=== PATIENT | male | born 1960 | race Two or more races ===

== ENCOUNTER → 2023-12-20 | Outpatient (CLI) | payer OTHER ==
[2023-12-20 08:51] LABS: Potassium 4.4 mmol/L (3.5-5.1); Sodium 142 mmol/L (136-145)
[2023-12-20 08:52] LABS: Calcium 10.1 mg/dL (8.5-10.1); Carbon Dioxide 29 mmol/L (20-30)
[2023-12-20 08:57] LABS: BUN/Creatinine Ratio 9.4 (10.0-20.0); Blood Urea Nitrogen 9 mg/dL (9-23); Chloride 107 mmol/L (98-107); Glucose 140 mg/dL (74-106)
[2023-12-20 09:01] LABS: Anion Gap 6 (5-15)
== END | disposition home or self-care (01) ==
LOC: LAB 07:56
PROVIDERS: ATTEND Internal Medicine
DX: R97.20 Elevated prostate specific antigen [PSA] (principal); N40.1 Benign prostatic hyperplasia with lower urinary tract symptoms
CPT/HCPCS: 36415; 80048

== ENCOUNTER → 2024-03-21 | Outpatient (CLI) | payer OTHER ==
[2024-03-21 09:24] LABS: Urine Bacteria None Seen /hpf (None Seen)
[2024-03-21 09:40] LABS: Urine Blood 1+ /uL (Negative); Urine Clarity Clear (Clear); Urine Color Yellow (Yellow); Urine Mucus FEW (None Seen); Urine Protein, UAD TRACE (Negative); Urine Specific Gravity 1.026 (1.001-1.035); Urine Urobilinogen Normal (Negative); Urine WBC 1 /hpf (0 - 3)
[2024-03-21 09:53] LABS: Chloride 108 mmol/L (98-107); Potassium 4.1 mmol/L (3.5-5.1); Sodium 141 mmol/L (136-145)
[2024-03-21 09:54] LABS: Anion Gap 3 (5-15); Calcium 9.8 mg/dL (8.7-10.4); Carbon Dioxide 30 mmol/L (20-30)
[2024-03-21 09:58] LABS: Creatinine, Urine 198.63 mg/dL (30.0-125.0)
[2024-03-21 09:59] LABS: BUN/Creatinine Ratio 10.1 (10.0-20.0); Blood Urea Nitrogen 10 mg/dL (9-23); Glucose 132 mg/dL (74-106); Triglycerides 192 mg/dL (< 150)
[2024-03-21 10:00] LABS: LDL Cholesterol 100 mg/dL (< 100)
[2024-03-21 10:01] LABS: Cholesterol 164 mg/dL (< 200); HDL Cholesterol 31 mg/dL (40-59)
== END | disposition home or self-care (01) ==
LOC: LAB 09:11
PROVIDERS: ATTEND Internal Medicine
DX: I10 Essential (primary) hypertension (principal); E11.69 Type 2 diabetes mellitus with other specified complication; E78.2 Mixed hyperlipidemia; R94.4 Abnormal results of kidney function studies; R82.90 Unspecified abnormal findings in urine
CPT/HCPCS: 36415; 80048; 80061; 81001; 82043; 82570; 83036

== ENCOUNTER 2024-07-06 15:51 | Inpatient (IN) | payer OTHER ==
[~2024-07-06] VITALS: Ht 175.3 cm; Wt 89.8 kg
--- NOTE | 2024-07-06 16:05 | ED.PDOC ---
General HPI Comments A 63 year old male presents to the ED with a chief complaint of LT flank pain onset today around 14:00. Patient states he began experiencing similar pain about 2 months ago, PCP sent him for imaging and was told he had a kidney stone. Patient has a past medical history of DM and kidney stones. Denies fever, chills, nausea, vomiting, chest pain, shortness of breath, dysuria, hematuria. No other symptoms or modifying factors present at this time. Time Seen by MD: 15:58 Reviewed notes: Medications, Allergies Allergies: Coded Allergies: NO KNOWN ALLERGIES (Unverified , 07/06/24) Information Source: Patient Mode of Arrival: Ambulatory Severity: Moderate Timing: Hours Duration: Since onset Has not urinated for: Hours Prehospital treatment: None History of: Kidney stone Location: (L)Flank associated signs and symptoms: Flank Pain Past Medical History PAST MEDICAL HISTORY: DM, Kidney Stones Surgical History: Hernia Repair Family History Family History: Unknown Social History Smoker: Non-Smoker Alcohol: Denies ETOH Use Drugs: Denies Drug Use Lives In: Home Constitutional: denies: chills, diaphoresis, fatigue, fever, malaise, sweats, weakness, others EENTM: denies: blurred vision, double vision, ear bleeding, ear discharge, ear drainage, ear pain, ear ringing, eye pain, eye redness, hearing loss, mouth pain, mouth swelling, nasal discharge, nose bleeding, nose congestion, nose pain, photophobia, tearing, throat pain, throat swelling, voice changes, others Respiratory: denies: cough, hemoptysis, orthopnea, SOB at rest, shortness of breath, SOB with excertion, stridor, wheezing, others Cardiovascular: denies: chest pain, dizzy spells, diaphoresis, Dyspnea on exertion, edema, irregular heart beat, left arm pain, lightheadedness, palpitations, PND, syncope, others Gastrointestinal: denies: abdomen distended, abdominal pain, blood streaked bowels, constipated, diarrhea, dysphagia, difficulty swallowing, hematemesis, melena, nausea, poor appetite, poor fluid intake, rectal bleeding, rectal pain, vomiting, others Genitourinary: reports: flank pain (LT flank pain); denies: burning, dysuria, frequency, hematuria, incontinence, penile discharge, penile sore, pain, testicle pain, testicle swelling, urgency, others Neurological: denies: dizziness, fainting, headache, left sided numbness, left sided weakness, numbness, paresthesia, pre-existing deficit, right sided numbness, right sided weakness, seizure, speech problems, tingling, tremors, weakness, others Musculoskeletal: denies: back pain, gout, joint pain, joint swelling, muscle pain, muscle stiffness, neck pain, others Integumetry: denies: bruises, change in color, change in hair/nails, dryness, laceration, lesions, lumps, rash, wounds, others Allergic/Immunocompromised: denies: Difficulty Healing, Frequent Infections, Hives, Itching, others Hematologic/Lymphatic: denies: anemia, blood clots, easy bleeding, easy bruising, swollen glands, others Endocrine: denies: excessive hunger, excessive sweating, excessive thirst, excessive urination, flushing, intolerance to cold, intolerance to heat, unexplained weight gain, unexplained weight loss, others Psychiatric: denies: anxiety, bipolar disorder, depression, hopeless, panic disorder, schizophrenia, sleepless, suicidal, others All Other Systems: Reviewed and Negative Physical Exam General Appearance: Normal, Other (appears uncomfortable) HEENT: Normal ENT Inspection, Pharynx Normal, TMs Normal Neck: Full Range of Motion, Non-Tender, Normal, Normal Inspection Respiratory: Chest Non-Tender, Lungs Clear, No Accessory Muscle Use, No Respiratory Distress, Normal Breath Sounds Cardiovascular: No Edema, No JVD, No Murmur, No Gallop, Normal Peripheral Pulses, Regular Rate/Rhythm Breast Exam: Deferred Gastrointestinal: No Organomegaly, Non Tender, No Pulsatile Mass, Normal Bowel Sounds, Soft Genitalia: Deferred Pelvic: Deferred Rectal: Deferred Extremities: No calf tenderness, Normal capillary refill, Normal inspection, Normal range of motion, Non-tender, No pedal edema Musculoskeletal : Apperance: Normal Neurologic: Alert, fitness center attendant II-XII nml as Tested, No Motor Deficits, Normal Affect, Normal Mood, No Sensory Deficits Cerebellar Function: Normal Reflexes: Normal Skin: Dry, Normal Color, Warm Lymphatic: No Adenopathy Was a procedure done? Was a procedure done?: No Differential Diagnosis Kidney stone (Female): N/A Kidney stone (Male): Cholelithiasis, Pancreatitis, Pyelonephritis, Renal failure, Urolithiasis, Urinary tract infection Penile/Scrotal: N/A Urinary Problem (Male): N/A Urinary Problem (Female): N/A X-Ray, Labs, Meds, VS Vital Signs Date Time Temp Pulse Resp B/P (MAP) Pulse Ox O2 Delivery O2 Flow Rate FiO2 07/06/24 16:03 97.9 116 16 165/90 (115) 97 Lab Test 07/06/24 16:44 07/06/24 16:27 07/06/24 16:00 Range/Units Urine Color Light-yellow Yellow Urine Clarity Clear Clear Urine pH 6.5 5.0-9.0 Urine Specific Somis 1.019 1.001-1.035 Urine Protein Negative Negative Urine Ketones Negative Negative Urine Blood 1+ H Negative /uL Urine Nitrite Negative Negative Urine Bilirubin Negative Negative Urine Urobilinogen Normal Negative mg/dL Urine Leukocyte Esterase Negative Negative /uL Urine RBC 29 0 - 3 /hpf Urine WBC <1 0 - 3 /hpf Urine Squamous Epithelial Cells Few <5 /hpf Urine Bacteria None seen None Seen /hpf Urine Glucose Normal Normal mg/dL White Blood Count 7.7 4.4-10.8 10^3/uL Red Blood Count 5.02 4.5-5.90 10^6/uL Hemoglobin 15.9 13.5-17.5 g/dL Hematocrit 45.5 41.0-53.0 % Mean Corpuscular Volume 90.8 80.0-100.0 fL Mean Corpuscular Hemoglobin 31.8 28.0-32.0 pg Mean Corpuscular Hemoglobin Concent 35.0 32.0-36.0 g/dL Red Cell Distribution Width 13.3 11.8-14.3 % Platelet Count 157 140-450 10^3/uL Mean Platelet Volume 10.1 6.9-10.8 fL Neutrophils (%) (Auto) 66.6 37.0-80.0 % Lymphocytes (%) (Auto) 26.3 10.0-50.0 % Monocytes (%) (Auto) 5.7 0.0-12.0 % Eosinophils (%) (Auto) 0.9 0.0-7.0 % Basophils (%) (Auto) 0.5 0.0-2.0 % Neutrophils # (Auto) 5.2 1.6-8.6 10 ^3/uL Lymphocytes # (Auto) 2.0 0.4-5.4 10 ^3/uL Monocytes # (Auto) 0.4 0-1.3 10 ^3/uL Eosinophils # (Auto) 0.1 0-0.8 10 ^3/uL Basophils # (Auto) 0 0-0.2 10 ^3/uL Nucleated Red Blood Cells 0.3 % Sodium Level Pending Potassium Level Pending Chloride Level Pending Carbon Dioxide Level Pending Anion Gap Pending Blood Urea Nitrogen Pending Creatinine Pending Glomerular Filtration Rate Calc Pending BUN/Creatinine Ratio Pending Serum Glucose Pending Calcium Level Pending Current Medications Medications (Trade) Dose Ordered Sig/Jace Route Start Time Stop Time Status Last Admin Sodium Chloride 1,000 ml @ 1,000 mls/hr Q1H ONCE IV 07/06/24 16:00 07/06/24 16:59 DC 07/06/24 17:28 Tamsulosin HCl (Flomax) 0.4 mg ONCE ONCE PO 07/06/24 16:00 07/06/24 16:01 DC 07/06/24 17:30 [place] [address] Ph: [phone] DIAGNOSTIC IMAGING Diagnostic Imaging Report : [id number] Signed PATIENT: REDDY OROZCO ACCT: [id number] UNIT: [id number] : 1960 LOC: ER ROOM / BED: / AGE / SEX: 63 / M ADM STATUS: REG ER SERVICE 1600 ORDERING PHYSICIAN: JB OTT MD PROCEDURE(s): ABPL - CT AB PEL WO CON-NO ORAL OR IV REASON: left flank pain ORDER NUMBER(s): [id number], ACCESSION NUMBER(s): [id number] Exam: CT CT AB PEL WO CON-NO ORAL OR IV History: left flank pain Comparison Study: 12/22/2023 report only TECHNIQUE: Multidetector CT of the abdomen and pelvis without contrast. Axial, coronal and sagittal multiplanar reformats were obtained from the axial data set by the technologist. Radiation Dose Information: CT Dose: CTDI volume is 19.94 mGy. Dose-length product is 1064.16 mGy*cm FINDINGS: Bibasilar atelectasis. Partially visualized heart is unremarkable. Liver, spleen, gallbladder, pancreas and right adrenal glands unremarkable. 2.2 cm left adrenal nodule which may represent an adenoma. Right kidney, and ureter unremarkable. Punctate nonobstructing left renal calculus. 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 There is [id number] left-sided hydroureteronephrosis. There is mild left-sided per inephric fat stranding which is most likely from the hydronephrosis . 5 mm obstructing calculus within the left distal ureter. 3 mm calculus of the left posterior urinary bladder. Mild wall thickening of the urinary bladder. Enlarged prostate. Stomach is unremarkable. Small bowel loops unremarkable. Appendix is unremarkable. Large bowel is unremarkable. No evidence of intraperitoneal free air or free fluid. Mild mesenteric fat stranding of the mid to lower abdomen. No evidence of aortic aneurysm. Mild atherosclerotic calcification of the aorta and bilateral iliacs. No significant lymphadenopathy. Small fat containing right inguinal hernia. Small fat containing umbilical hernia. No destructive osseous lesions are noted. IMPRESSION: 5 mm obstructing calculus over the left distal ureter causing [id number] left-sided hydroureteronephrosis. 3 mm calculus of the posterior left urinary bladder . Wall thickening of the urinary bladder which may be due to inadequate distention/ cystitis. Recommend correlation with urinalysis. Enlarged prostate. Recommend correlation with PSA. Mild mesenteric fat stranding of the mid to lower abdomen which may represent mesenteric panniculitis in the right clinical setting. Correlate clinically. 2.2 cm left adrenal nodule which may represent an adenoma. ATED BY: APRIL PASCUAL DO DICTATED DATE/TIME: 07/06/241702 SIGNED BY: APRIL PASCUAL DO SIGNED DATE/TIME: 07/06/241702 CC: Time of 1ST Reevaluation: 16:28 Reevaluation 1ST: Unchanged Patient Education/Counseling: Diagnosis, Treatment, Prognosis Family Education/Counseling: No Family Present Additional Information HI DATA VOL/COMPLEXITY:>2 External Notes- Ordered Test- CT, Lab, PHA Reviewed Results: CBC, BMP, UA Interpreted Results- CT Discuss Tx/Results- medical personnel, patient Departure 1 Departure Time of Disposition: 17:34 (Patient presented with abdominal pain that was concerning for possible appendicits, gastritis, cholecystitis, colitis, gastroenteritis, sbo, or orther possible surgical emergency. Data: 1. I ordered and reviewed the result of at least 3 labs including a CBC, BMP, and Urinalysis. 2. I independently interpreted the following tests: CT Abdoment and Pelvis is concerning for obstructing left renal colic with hydronephrosis .Risk:This patient has a high risk of morbidity due to further diagnostic testing or treatment and may suffer from an acute abdominal process disorder. Workup reveals obstructing left renal colic with hydronephrosis and patient should be admitted for further workup. and possible expert consultation. ) Impression: Primary Impression: Renal colic on left side Additional Impressions: Hydronephrosis Qualified Codes: N13.2 - Hydronephrosis with renal and ureteral calculous obstruction Intractable abdominal pain Disposition: ADMITTED INPATIENT Admit to: Med Surg Condition: Serious Critical Care Note Critical Care Time?: Yes Critical care comment: Intractable abdominal pain Authorized and Performed by: Jb Ott MD Total critical care time: Approximately 38 minutes Due to a high probability of clinically significant, life threatening deterioration, the patient required my highest level of preparedness to intervene emergently and I personally spent this critical care time directly and personally managing the patient. This critical care time included obtaining a history; examining the patient; pulse oximetry; ordering and review of studies; arranging urgent treatment with development of a management plan; evaluation of patient's response to treatment; frequent reassessment; and, discussions with other providers. This critical care time was performed to assess and manage the high probability of imminent, life-threatening deterioration that could result in multi-organ failure. It was exclusive of separately billable procedures and treating other patients and teaching time. Please see my other sections and the rest of the note for further information on patient assessment and treatment. Stability Stability form required: No I personally scribed for JB OTT MD ([email or web address]) on 07/06/24 at 16:05. Electronically submitted by Vanessa Pineda ([email or web address]). I personally scribed for JB OTT MD ([email or web address]) on 07/06/24 at 17:10. Electronically submitted by Vanessa Pineda ([email or web address]). I personally scribed for JB OTT MD ([email or web address]) on 11/29/24 at 17:19. Electronically submitted by Vanessa Pineda ([email or web address]). JB OTT MD Jul 06, 2024 16:05
[2024-07-06 16:46] LABS: Urine Bacteria None Seen /hpf (None Seen)
[2024-07-06 16:49] LABS: Basophils # (auto) 0 10 ^3/uL (0-0.2); Basophils % (auto) 0.5 % (0.0-2.0); Eosinophils # (auto) 0.1 10 ^3/uL (0-0.8); Eosinophils % (auto) 0.9 % (0.0-7.0); Hematocrit 45.5 % (41.0-53.0); Hemoglobin 15.9 g/dL (13.5-17.5); Lymphocytes % (auto) 26.3 % (10.0-50.0); Mean Corpuscular Hemoglobin 31.8 pg (28.0-32.0); Mean Corpuscular Volume 90.8 fL (80.0-100.0); Monocytes # (auto) 0.4 10 ^3/uL (0-1.3); Monocytes % (auto) 5.7 % (0.0-12.0); Neutrophils # (auto) 5.2 10 ^3/uL (1.6-8.6); Neutrophils % (auto) 66.6 % (37.0-80.0); Nucleated Red Blood Cells % 0.3 %; Platelet Count (auto) 157 10^3/uL (140-450); Red Blood Cells 5.02 10^6/uL (4.5-5.90); Red Cell Distribution Width 13.3 % (11.8-14.3); White Blood Cell 7.7 10^3/uL (4.4-10.8)
[2024-07-06 16:52] LABS: Urine Blood 1+ /uL (Negative); Urine Clarity Clear (Clear); Urine Color Light-Yellow (Yellow); Urine Protein, UAD Negative (Negative); Urine Specific Gravity 1.019 (1.001-1.035); Urine Urobilinogen Normal (Negative); Urine WBC <1 /hpf (0 - 3); Urine pH 6.5 (5.0-9.0)
--- NOTE | 2024-07-06 17:05 | DVH ---
Exam: CT CT AB PEL WO CON-NO ORAL OR IV History: left flank pain Comparison Study: 12/22/2023 report only TECHNIQUE: Multidetector CT of the abdomen and pelvis without contrast. Axial, coronal and sagittal m ultiplanar reformats were obtained from the axial data set by the technologist. Radiation Dose Information: CT Dose: CTDI volume is 19.94 mGy. Dose-length product is 1064.16 mGy*cm FINDINGS: Bibasilar atelectasis. Partially visualized heart is unremarkable. Liver, spleen, gallbladder, pancreas and right adrenal glands unremarkable. 2.2 cm left adrenal nodul e which may represent an adenoma. Right kidney, and ureter unremarkable. Punctate nonobstructing left renal calculus. Dual left renal c ollecting system with a bifid ureter. There is [id number] left-sided hydroureteronephrosis. The re is mild left-sided perinephric fat stranding which is most likely from the hydronephrosis . 5 mm o bstructing calculus within the left distal ureter. 3 mm calculus of the left posterior urinary bladde r. Mild wall thickening of the urinary bladder. Enlarged prostate. Stomach is unremarkable. Small bowel loops unremarkable. Appendix is unremarkable. Large bowel is unr emarkable. No evidence of intraperitoneal free air or free fluid. Mild mesenteric fat stranding of the mid to lower abdomen. No evidence of aortic aneurysm. Mild atherosclerotic calcification of the aorta and bilateral iliacs . No significant lymphadenopathy. Small fat containing right inguinal hernia. Small fat containing umbilical hernia. No destructive oss eous lesions are noted. IMPRESSION: 5 mm obstructing calculus over the left distal ureter causing [id number] left-sided hydroureter onephrosis. 3 mm calculus of the posterior left urinary bladder . Wall thickening of the urinary bladder which ma y be due to inadequate distention/ cystitis. Recommend correlation with urinalysis. Enlarged prostate. Recommend correlation with PSA. Mild mesenteric fat stranding of the mid to lower abdomen which may represent mesenteric panniculitis in the right clinical setting. Correlate clinically. 2.2 cm left adrenal nodule which may represent an adenoma.
[2024-07-06 17:27] LABS: Chloride 103 mmol/L (98-107); Potassium 4.2 mmol/L (3.5-5.1); Sodium 139 mmol/L (136-145)
[2024-07-06 17:28] LABS: Anion Gap 11 (5-15); Carbon Dioxide 25 mmol/L (20-31)
[2024-07-06] MEDS: SODIUM CHLORIDE 0.9% 1,000 ML IV ONE (17:28)
[2024-07-06 17:29] LABS: Calcium 10.3 mg/dL (8.7-10.4)
[2024-07-06] MEDS: TAMSULOSIN HYDROCHLORIDE 0.4 MG CAP PO ONE (17:30)
[2024-07-06 17:34] LABS: BUN/Creatinine Ratio 11.6 (10.0-20.0); Blood Urea Nitrogen 13 mg/dL (9-23)
[2024-07-06 17:45] VITALS: PULSE 72; RESP 16; O2SAT 97
[2024-07-06] MEDS: ONDANSETRON HCL 4 MG/2 ML VIAL IV ONE ×2 (17:45→17:55)
[2024-07-06] MEDS: KETOROLAC TROMETH 30 MG/ML 1ML VIAL IV ONE (17:55)
[2024-07-06] MEDS: MORPHINE SULFATE 4 MG/ML SYR/VIAL IV ONE (18:06)
[2024-07-06 18:08] LABS: Glucose 182 mg/dL (74-106)
[2024-07-06 19:40] VITALS: PULSE 73; RESP 18; O2SAT 97
[2024-07-06] MEDS ORDERED: DOCUSATE SOD 100 MG CAP PO PRN ×2 (20:30)
[2024-07-06] MEDS ORDERED: MORPHINE SULFATE INJ 2 MG/ml SYRG IV PRN (20:30)
[2024-07-06] MEDS ORDERED: NITROGLYCERIN 0.4 MG SL TAB SL PRN (20:30)
[2024-07-06] MEDS ORDERED: ONDANSETRON HCL 4 MG/2 ML VIAL IV PRN (20:30)
[2024-07-06] MEDS: MANNITOL FTV 25% 12.5 GM/50 ML 50 ML IV ONE (21:31)
[2024-07-06] MEDS: SODIUM CHLORIDE 0.9% 1,000 ML IV SCH (21:32)
[2024-07-06] MEDS: SODIUM CHLOR 0.9% PF (SALINE LOCK) 10ML VIAL/SYR IV SCH (22:06)
--- NOTE | 2024-07-06 23:08 | DVHHPRES ---
History of Present Illness Resident Creating Document: NEIL KELLY RESIDENT History of Present Illness Patient is 63 years old male with past medical history of diabetes mellitus type 2, kidney stone, BPH came with a complaint of left flank pain. As per patient he started having left flank pain developed slowly, maximum was 10/10, radiating to the left groin, sharp in nature, no aggravating factor, relieved with some pain medication. Patient also reported nausea and vomiting once time, watery food content, no blood. On further discussion patient also stated he had some dysuria today. Patient stated that he has been having narrowing is team of uterine for a while and he was on Flomax before for benign enlargement of the prostate. Patient denied any constipation or diarrhea, chest pain, shortness of breath, acute joint pain or swelling, dysarthria or change in vision. Initial lab workup revealed blood sugar 182, other initials blood workup was within normal limit. CT of the abdomen revealed-5 mm obstructing calculus over the left distal ureter causing [id number]-[id number] left-sided hydroureteronephrosis. 3 mm calculus of the posterior left urinary bladder . Wall thickening of the urinary bladder which may be due to inadequate distention/ cystitis. Recommend correlation with urinalysis.Enlarged prostate. Mild mesenteric fat stranding of the mid to lower abdomen which may represent mesenteric panniculitis in the right clinical setting. Correlate clinically. 2.2 cm left adrenal nodule which may represent an adenoma. Past Medical History Mellitus type 2, BP, kidney stone Past Surgical History Bilateral inguinal hernia repair, 1994 and 9096 Family History Mom and dad had diabetes mellitus Past Social History Lives at home with , denies smoking, alcoholism, drug abuse Review of Systems Review of Systems Allergy- NKDA Patient was seen today at the bedside. Cardiovascular- deny acute chest pain or shortness of breath or cough or palpitation Respiratory- denies cough or short of breath or wheezing Gastrointestinal- denies any rectal bleeding Musculoskeletal-denies acute joint swelling or tenderness or redness Neurological- denies acute dysarthria, dysphagia, change in vision Psychiatry- denies depression or SI or HI Skin- denies acute rash or purpura Allergies: Coded Allergies: NO KNOWN ALLERGIES (Unverified , 07/06/24) Medications Current Medications Medications Dose Ordered Sig/Jace Route Start Time Stop Time Status Last Admin Dose Admin Acetaminophen 650 mg Q6HP PRN PO 07/06/24 20:30 Morphine Sulfate 2 mg Q4HPRN PRN IV 07/06/24 20:30 Sodium Chloride 10 ml Q8HR IV 07/06/24 22:00 07/06/24 22:06 10 ML Ondansetron HCl 4 mg Q4HP PRN IV 07/06/24 20:30 Docusate Sodium 100 mg BIDPRN PRN PO 07/06/24 20:30 Enoxaparin Sodium 40 mg DAILY SC 07/07/24 10:00 Nitroglycerin 0.4 mg Q5MINP PRN SL 07/06/24 20:30 Morphine Sulfate 2 mg Q30M PRN IV 07/06/24 20:30 Sodium Chloride 1,000 ml @ 125 mls/hr Q8H IV 07/06/24 20:45 07/06/24 21:32 125 MLS/HR Exam Vital Signs Vital Signs Date Time Temp Pulse Resp B/P (MAP) Pulse Ox O2 Delivery O2 Flow Rate FiO2 07/06/24 21:00 75 15 144/85 (104) 96 07/06/24 19:40 Room Air* 0 21 07/06/24 19:40 98.3 98.3 Exam General examination- , alert, oriented, conversant HEENT- PEERLA, no acute nasal discharge Cardiovascular- S1-S2 audible, rate and rhythm regular, no murmur Respiratory- CTAB, no wheeze or rhonchi Gastrointestinal-nontender, bowel sound+. Nondistended Musculoskeletal-no acute joint swelling or tenderness or redness Renal system-left flank tenderness++ Lower extremity- no leg edema Neurological- cranial nerves intact, no acute dysarthria or dysphagia Psychiatry- denies depression or SI or HI Skin- no acute rash or purpura Labs/Xrays Labs Test 07/06/24 16:44 07/06/24 16:27 Range/Units Urine Color Light-yellow Yellow Urine Clarity Clear Clear Urine pH 6.5 5.0-9.0 Urine Specific [place] 1.019 1.001-1.035 Urine Protein Negative Negative Urine Ketones Negative Negative Urine Blood 1+ H Negative /uL Urine Nitrite Negative Negative Urine Bilirubin Negative Negative Urine Urobilinogen Normal Negative mg/dL Urine Leukocyte Esterase Negative Negative /uL Urine RBC 29 0 - 3 /hpf Urine WBC <1 0 - 3 /hpf Urine Squamous Epithelial Cells Few <5 /hpf Urine Bacteria None seen None Seen /hpf Urine Glucose Normal Normal mg/dL White Blood Count 7.7 4.4-10.8 10^3/uL Red Blood Count 5.02 4.5-5.90 10^6/uL Hemoglobin 15.9 13.5-17.5 g/dL Hematocrit 45.5 41.0-53.0 % Mean Corpuscular Volume 90.8 80.0-100.0 fL Mean Corpuscular Hemoglobin 31.8 28.0-32.0 pg Mean Corpuscular Hemoglobin Concent 35.0 32.0-36.0 g/dL Red Cell Distribution Width 13.3 11.8-14.3 % Platelet Count 157 140-450 10^3/uL Mean Platelet Volume 10.1 6.9-10.8 fL Neutrophils (%) (Auto) 66.6 37.0-80.0 % Lymphocytes (%) (Auto) 26.3 10.0-50.0 % Monocytes (%) (Auto) 5.7 0.0-12.0 % Eosinophils (%) (Auto) 0.9 0.0-7.0 % Basophils (%) (Auto) 0.5 0.0-2.0 % Neutrophils # (Auto) 5.2 1.6-8.6 10 ^3/uL Lymphocytes # (Auto) 2.0 0.4-5.4 10 ^3/uL Monocytes # (Auto) 0.4 0-1.3 10 ^3/uL Eosinophils # (Auto) 0.1 0-0.8 10 ^3/uL Basophils # (Auto) 0 0-0.2 10 ^3/uL Nucleated Red Blood Cells 0.3 % Sodium Level 139 136-145 mmol/L Potassium Level 4.2 3.5-5.1 mmol/L Chloride Level 103 98-107 mmol/L Carbon Dioxide Level 25 20-31 mmol/L Anion Gap 11 5-15 Blood Urea Nitrogen 13 9-23 mg/dL Creatinine 1.12 0.700-1.30 mg/dL Glomerular Filtration Rate Calc 73 >90 mL/min BUN/Creatinine Ratio 11.6 10.0-20.0 Serum Glucose 182 H 74-106 mg/dL Calcium Level 10.3 8.7-10.4 mg/dL Magnesium Level 1.7 1.6-2.6 mg/dL Assessment/Plan Assessment/Plan # left flank pain likely due to obstructive urinary stone -CT of the abdomen revealed-5 mm obstructing calculus over the left distal ureter causing tnnn-tr-ethcutrl left-sided hydroureteronephrosis. 3 mm calculus of the posterior left urinary bladder . Wall thickening of the urinary bladder which may be due to inadequate distention/ cystitis. .Enlarged prostate. -continue IV normal saline as prescribed -continue Flomax 0.4 mg p.o. q.d. -IV mannitol once as prescribed -continue pain medication as prescribed -ordered Urology consult # possible pyelonephritis, possible cystitis -# left flank pain -CT of the abdomen revealed-5 mm obstructing calculus over the left distal ureter causing dnwr-ij-xkyidcie left-sided hydroureteronephrosis. 3 mm calculus of the posterior left urinary bladder . Wall thickening of the urinary bladder which may be due to inadequate distention/ cystitis. .Enlarged prostate. -continue IV normal saline as prescribed -continue Flomax 0.4 mg p.o. q.d. -IV mannitol once as prescribed -continue ceftriaxone 2 g IV daily -pending blood culture -continue pain medication as prescribed -ordered Urology consult # left-sided tyze-zb-ytmewfpu hydronephrosis likely due to obstructive ureteric stone - left flank pain -CT of the abdomen revealed-5 mm obstructing calculus over the left distal ureter causing oyji-bx-lnllpnqp left-sided hydroureteronephrosis. 3 mm calculus of the posterior left urinary bladder . Wall thickening of the urinary bladder which may be due to inadequate distention/ cystitis. .Enlarged prostate. -continue IV normal saline as prescribed -continue Flomax 0.4 mg p.o. q.d. -IV mannitol once as prescribed -continue pain medication as prescribed -ordered Urology consult # benign enlargement of the prostate -continue Flomax 0.4 mg p.o. q.d. # left kidney stone -CT of the abdomen revealed-5 mm obstructing calculus over the left distal ureter causing clnt-kv-awbqkpzt left-sided hydroureteronephrosis. 3 mm calculus of the posterior left # suspected cystitis -patient complained of dysuria -CT abdomen revealed-3 mm calculus of the posterior left urinary bladder . Wall thickening of the urinary bladder which may be due to inadequate distention/ cystitis. -patient with left it knee and bladder stone -urinalysis not significant # diabetes mellitus type 2 -HGB A1c 6.9 -insulin sliding scale as prescribed # incidental finding of left adrenal adenoma -CT abdomen revealed-2.2 cm left adrenal nodule which may represent an adenoma. Goals of care/advance care planning; FULL CODE; discussed with the patient >15 minutes PUD prophylaxis: DVT prophylaxis: Lovenox PCP-Dr. Banks Plan discussed with Dr. Spann, nursing staff, patient Total time spent on patient evaluation, chart review, assessment and plan, d iscussion discussion >30 minutes Plan discussed with: Patient Plan discussed with: Patient, Other My Orders Orders - NEIL KELLY RESIDENT Procedure Category Date Status Time Code Status CODE 07/06/24 Transmitted 20:22 Complete Blood Count LAB 07/07/24 Verified 04:00 Comprehensive LAB 07/07/24 Verified Metabolic Panel 04:00 Cardiac DIET 07/07/24 Transmitted Diet-2gna,Lofat,Lochol Breakfast Acetaminophen Tablet PHA 07/06/24 In Process (Tylenol Tablet) 20:30 Morphine Sulfate PHA 07/06/24 In Process Injection 20:30 Admit ADMIT 07/06/24 Transmitted 20:25 Sodium Chloride Lock PHA 07/06/24 In Process (Saline Lock Ns) 22:00 Ondansetron Hcl PHA 07/06/24 In Process (Zofran) 20:30 Docusate Sodium PHA 07/06/24 In Process Capsule (Colace 20:30 Enoxaparin Sodium PHA 07/07/24 In Process (Lovenox) 10:00 Nitroglycerin PHA 07/06/24 In Process Sublingual (Ntrostat 20:30 Morphine Sulfate PHA 07/06/24 In Process Injection 20:30 Oxygen By Nasal RT 07/06/24 Transmitted Cannula 20:25 Stat Ekg For Chest JOSELINE 07/06/24 In Process Pain 20:25 Notify Md Of Changes JOSELINE 07/06/24 In Process From Base 20:25 Wood Molder For JOSELINE 07/06/24 In Process 24 Hours 20:25 Emergency Dysrhythmia JOSELINE 07/06/24 In Process Protocol 20:25 Rhythm Strips Once JOSELINE 07/06/24 In Process Every Shift 20:25 Psa Total+% Free LAB 07/06/24 In Process 20:35 Sodium Chloride 0.9% PHA 07/06/24 In Process 20:45 Date of Service: Jul 06, 2024 Billing Provider: MARIA TERESA SPANN MD Common Visit Codes: [id number] INP/OBS CARE (HIGH) Secondary Visit Codes: [id number] CARE PLAN 30 MINUTES NEIL KELLY RESIDENT Jul 06, 2024 23:08 MARIA TERESA SPANN MD Jul 08, 2024 21:25
[2024-07-06] MEDS: cefTRIAXone 1GM/50ML D5W 50 ML IV ONE (23:37)
[2024-07-07] VITALS (8 sets, daily range): BP systolic 101–166; BP diastolic 54–90; PULSE 73–105; RESP 17–31; TEMP 98–98.5; O2SAT 92–96
[2024-07-07] MEDS: ONDANSETRON HCL 4 MG/2 ML VIAL IV PRN (00:31)
[2024-07-07] MEDS: MORPHINE SULFATE INJ 2 MG/ml SYRG IV PRN (00:32)
[2024-07-07 05:35] LABS: Basophils # (auto) 0 10 ^3/uL (0-0.2); Basophils % (auto) 0.3 % (0.0-2.0); Eosinophils # (auto) 0 10 ^3/uL (0-0.8); Eosinophils % (auto) 0.4 % (0.0-7.0); Hematocrit 40.4 % (41.0-53.0); Hemoglobin 14.3 g/dL (13.5-17.5); Lymphocytes # (auto) 1.2 10 ^3/uL (0.4-5.4); Lymphocytes % (auto) 12.4 % (10.0-50.0); Mean Corpuscular Hgb Conc. 35.5 g/dL (32.0-36.0); Monocytes # (auto) 0.7 10 ^3/uL (0-1.3); Neutrophils # (auto) 7.4 10 ^3/uL (1.6-8.6); Neutrophils % (auto) 78.9 % (37.0-80.0); Nucleated Red Blood Cells % 0.1 %; Platelet Count (auto) 120 10^3/uL (140-450); Red Blood Cells 4.49 10^6/uL (4.5-5.90); Red Cell Distribution Width 13.4 % (11.8-14.3); White Blood Cell 9.3 10^3/uL (4.4-10.8)
[2024-07-07 05:52] LABS: Alanine Aminotransferase 17 U/L (7-40); Albumin 4.2 g/dL (3.2-4.8); Alkaline Phosphatase 66 U/L (46-116); Anion Gap 10 (5-15); Aspartate Aminotransferase 20 U/L (13-40); BUN/Creatinine Ratio 9.4 (10.0-20.0); Bilirubin, Total 0.8 mg/dL (0.2-1.0); Blood Urea Nitrogen 12 mg/dL (9-23); Calcium 9.5 mg/dL (8.7-10.4); Carbon Dioxide 23 mmol/L (20-31); Chloride 104 mmol/L (98-107); Potassium 4.4 mmol/L (3.5-5.1); Sodium 137 mmol/L (136-145); Total Protein 6.8 g/dL (5.7-8.2)
[2024-07-07 05:57] LABS: Glucose 168 mg/dL (74-106)
[2024-07-07] MEDS: MAGNESIUM SULFATE 1GM/100ML 100 ML IV ONE (06:00)
[2024-07-07 07:37] LABS: Magnesium 1.7 mg/dL (1.6-2.6)
[2024-07-07 07:41] LABS: Blood Alcohol < 3.0 mg/dL (<10)
[2024-07-07 08:14] LABS: Amphetamine Screen, Urine Neg (NEGATIVE); Barbiturate Scree,Urine Neg (NEGATIVE); Benzodiazephine Screen, Urine Neg (NEGATIVE); Cannabinoid Screen, Urine Neg (NEGATIVE); Cocaine Screen, Urine Neg (NEGATIVE); Opiate Scree,Urine Neg (NEGATIVE); Phencyclidine Screen, Urine Neg (NEGATIVE)
[2024-07-07] MEDS ORDERED: ENOXAPARIN SOD 40 MG/0.4 ML SYRINGE SC SCH ×2 (10:00)
[2024-07-07] MEDS: cefTRIAXone 1GM/50ML D5W 50 ML IV SCH (10:48)
--- NOTE | 2024-07-07 12:06 | DVHPNRES ---
Progress Note Date Seen: Jul 07, 2024 Resident Creating Document: PEDRO NOLEN RESIDENT Medical Necessity Reason Pt with a Central, PICC or Fol: No Subjective Review of Systems REDDY OROZCO is a 63-year-old male with PMH of type 2 DM, nephrolithiasis, BPH presented to the ED with the chief complaints of left flank pain. Patient reported, yesterday afternoon pain developed the which is gradual onset of left flank pain 10/10, radiating to left groin, sharp in nature no aggravating factors but relieved with pain medications which is associated with dysuria, poor stream, nausea and vomiting. On my assessment patient denies constipation or diarrhea, chest pain, shortness of breath, acute joint pain or swelling, dysarthria or change in vision and other acute symptoms. PMH:type 2 DM, nephrolithiasis, BPH PSH: Bilateral inguinal hernia repairs Family history: History of diabetes in mother and father Social history: Lives with the family. Denies smoking, alcohol and other drug abuse Allergies: No known allergies Patient seen and examined at the bedside. Patient reported improvement in his symptoms since admission. CT abdominal pelvis showed a 5 mm obstructing calculi in left distal ureter with a iczd-lv-qwshuuqw left hydroureteronephrosis and 3 mm calculi in posterior urinary bladder. Currently on IVF, Flomax and pain management. Objective vital signs Vital Sign Date Time Temp Pulse Resp B/P (MAP) Pulse Ox O2 Delivery O2 Flow Rate FiO2 07/07/24 10:50 92 21 146/90 07/07/24 09:25 98.0 95 98.0 07/07/24 07:50 Room Air* 0 21 Total Intake and Output 07/06/24 07/06/24 07/07/24 15:00 23:00 07:00 Intake Total 233.3 ml 866.7 ml Output Total 400 ml Balance 233.3 ml 466.7 ml medications Current Medications Medications Dose Ordered Sig/Jace Route Start Time Stop Time Status Last Admin Dose Admin Acetaminophen 650 mg Q6HP PRN PO 07/06/24 20:30 Morphine Sulfate 2 mg Q4HPRN PRN IV 07/06/24 20:30 07/07/24 10:50 2 MG Sodium Chloride 10 ml Q8HR IV 07/06/24 22:00 07/07/24 05:36 10 ML Ondansetron HCl 4 mg Q4HP PRN IV 07/06/24 20:30 07/07/24 00:31 4 MG Docusate Sodium 100 mg BIDPRN PRN PO 07/06/24 20:30 Nitroglycerin 0.4 mg Q5MINP PRN SL 07/06/24 20:30 Morphine Sulfate 2 mg Q30M PRN IV 07/06/24 20:30 Sodium Chloride 1,000 ml @ 125 mls/hr Q8H IV 07/06/24 20:45 07/07/24 05:00 125 MLS/HR Tamsulosin HCl 0.4 mg QPM PO 07/07/24 18:00 Hydralazine HCl 10 mg Q6HP PRN IV 07/06/24 23:45 Ceftriaxone Sodium 50 ml @ 100 mls/hr DAILY@09 IV 07/07/24 09:00 07/07/24 10:48 100 MLS/HR Examination Pt is lying on bed General Appearance: Alert, Oriented X3, Cooperative, Not in acute distress HEENT: Atraumatic, Mucous membranes moist/pink Respiratory: Clear to auscultation, Normal air movement, No added sounds Cardiovascular: Regular rate, Normal S1, Normal S2, No murmurs Abdominal: Left flank tenderness and left groin, suprapubic tenderness. Active bowel sounds, Soft, Extremities: No edema, Normal pulses, No tenderness/swelling Skin: No Significant rash, except past surgical scars Neuro: Normal speech, sensorimotor deficits none Psych/Mental Status: Mental status NL, Mood NL Nurse was there as sharperone during examination laboratory and microbiology Laboratory Tests 07/07/24 04:21 Test 07/07/24 04:21 Range/Units Serum Glucose 168 H 74-106 mg/dL Labs and/or images reviewed: Labs reviewed by me, Image(s) reviewed by me Problem List/Assessment/Plan Problem List/Assessment/Plan # Left flank pain likely due to obstructive urinary stone # Left Nephroureterolithiasis # Left-sided rmbr-au-yxzknjhk hydronephrosis likely due to obstructive ureteric stone -CT of the abdomen revealed-5 mm obstructing calculus over the left distal ureter causing suxj-am-vbshocmc left-sided hydroureteronephrosis. 3 mm calculus of the posterior left urinary bladder . Wall thickening of the urinary bladder which may be due to inadequate distention/ cystitis. .Enlarged prostate. -continue IVF @125 ml/hr along with Flomax 0.4 mg p.o. q.d. and strain the urine -IV mannitol once as prescribed -continue pain medication as prescribed -ordered Urology consult # Rule out ? pyelonephritis # Rule out cystitis -CT of the abdomen wall thickening of the urinary bladder which may be due to inadequate distention/ cystitis. .Enlarged prostate. -continue ceftriaxone 1 g IV daily -pending blood culture -urinalysis not significant # BPH -continue Flomax 0.4 mg p.o. q.d. # diabetes mellitus type 2 -pending HGB A1c -insulin sliding scale as prescribed # incidental finding of left adrenal adenoma -CT abdomen revealed-2.2 cm left adrenal nodule which may represent an adenoma. Lovenox for now No GI PPX Cardiac diet Goals of care discussed with the patient for more than 27 minutes: Full code status Case management discussed with Dr. Fraire, patient and nurse Plan discussed with: Patient, Spouse My Orders My Orders Orders - PEDRO NOLEN Procedure Category Date Status Time Vitamin D, 25-Hydroxy LAB 07/07/24 In Process 07:20 Vitamin B12 LAB 07/07/24 In Process 07:20 Strain All Urine For JOSELINE 07/07/24 In Process Stones 07:23 Glucose Blood PHA 07/07/24 Verified (Accu-Chek Comfort 17:00 Mild Sliding Scale PHA 07/07/24 Verified 17:00 Dextrose 50% Syringe PHA 07/07/24 Verified 12:15 Date of Service: Jul 07, 2024 Billing Provider: CORBIN FRAIRE MD Common Visit Codes: [id number] INP/OBS CARE(HIGH) PEDRO NOLEN Jul 07, 2024 12:06 CORBIN FRAIRE MD Jul 07, 2024 21:43
[2024-07-07] MEDS ORDERED: DEXTROSE (50%) 50ML SYRG IV PRN (12:15)
[2024-07-07] MEDS ORDERED: metroNIDAZOLE 500MG/100ML 100 ML IV SCH (14:00)
[2024-07-07] MEDS: TAMSULOSIN HYDROCHLORIDE 0.4 MG CAP PO SCH (17:37)
[2024-07-07] MEDS: InsuLIN REG 1unit/0.01ml Soln (100units/ml) SC SCH (17:46)
[2024-07-07] MEDS: ACCU-CHEK COMFORT CURVE STRIP VI SCH (17:46)
[2024-07-07] MEDS: hydrALAZINE HCL 20 MG/ML VL IV PRN (18:34)
[2024-07-07] MEDS ORDERED: cefTRIAXone 2GM/50ML D5W 50 ML IV SCH (23:00)
[2024-07-07] MEDS ORDERED: cefTRIAXone 1GM/50ML D5W 50 ML IV SCH (23:00)
[2024-07-08] VITALS (7 sets, daily range): BP systolic 132–156; BP diastolic 63–88; PULSE 70–96; RESP 14–20; TEMP 91.3–98.3; O2SAT 95–97
[2024-07-08 06:29] LABS: Basophils # (auto) 0.1 10 ^3/uL (0-0.2); Basophils % (auto) 0.6 % (0.0-2.0); Eosinophils # (auto) 0 10 ^3/uL (0-0.8); Eosinophils % (auto) 0.4 % (0.0-7.0); Hematocrit 39.4 % (41.0-53.0); Hemoglobin 13.9 g/dL (13.5-17.5); Lymphocytes # (auto) 1.5 10 ^3/uL (0.4-5.4); Mean Corpuscular Hemoglobin 31.9 pg (28.0-32.0); Mean Corpuscular Hgb Conc. 35.4 g/dL (32.0-36.0); Monocytes # (auto) 0.8 10 ^3/uL (0-1.3); Monocytes % (auto) 8.1 % (0.0-12.0); Neutrophils # (auto) 7.1 10 ^3/uL (1.6-8.6); Neutrophils % (auto) 74.9 % (37.0-80.0); Nucleated Red Blood Cells % 0.2 %; Platelet Count (auto) 118 10^3/uL (140-450); Red Blood Cells 4.38 10^6/uL (4.5-5.90); Red Cell Distribution Width 13.4 % (11.8-14.3); White Blood Cell 9.4 10^3/uL (4.4-10.8)
[2024-07-08 06:44] LABS: Chloride 106 mmol/L (98-107); Sodium 137 mmol/L (136-145)
[2024-07-08 06:45] LABS: Anion Gap 8 (5-15); Calcium 9.3 mg/dL (8.7-10.4); Carbon Dioxide 23 mmol/L (20-31)
[2024-07-08 06:50] LABS: Blood Urea Nitrogen 11 mg/dL (9-23); Glucose 150 mg/dL (74-106)
[2024-07-08] MEDS: ACETAMINOPHEN 325 MG TAB PO PRN (11:17)
--- NOTE | 2024-07-08 13:01 | DVHINCON2 ---
Date of service: Jul 08, 2024 Referring Physician Namrata Reason for Consultation left ureteral stone History of Present Illness 48 hour hx left renal clic,CT shows two stones left ureter 1mm in left intramural ureter and 5 to 6 mm stone just proximal to left UVJ with mod hydroureteronephrosis;denies hematuria or prostatism Past Medical History reviewed.diabetes for two years Past Surgical History reviewed Family History: Diabetes mellitus G8 MOTHER G8 FATHER Allergies: Coded Allergies: NO KNOWN ALLERGIES (Unverified , 07/06/24) Current Medications Current Medications Medications (Trade) Dose Ordered Sig/Jace Route PRN Reason Start Time Stop Time Status Last Admin Tamsulosin HCl (Flomax) 0.4 mg QPM PO 07/07/24 18:00 07/07/24 17:37 Ceftriaxone Sodium 50 ml @ 100 mls/hr DAILY@2300 IV 07/07/24 23:00 07/07/24 06:08 DC Ceftriaxone Sodium/Dextrose 50 ml @ 50 mls/hr DAILY@2300 IV 07/07/24 23:00 07/07/24 09:32 DC Metronidazole 100 ml @ 100 mls/hr Q8HR IV 07/07/24 14:00 07/07/24 09:53 DC Diagnostic Test (Pha) (Accu-Chek Comfort Curve T) 1 strip ACHS 07/07/24 17:00 07/08/24 11:12 Insulin Human Regular (InsuLIN R) ACHS SC 07/07/24 17:00 07/08/24 11:17 Review of Systems reviewed Vital Signs Vital Signs Date Time Temp Pulse Resp B/P (MAP) Pulse Ox O2 Delivery O2 Flow Rate FiO2 07/08/24 11:17 87 20 140/80 07/08/24 09:00 98.3 97 98.3 07/08/24 07:56 Room Air* 0 21 Labs/Diagnostic Data Labs Test 07/08/24 10:51 07/08/24 06:11 07/07/24 04:21 07/06/24 16:44 Range/Units POC Glucose 206 H 70-106 mg/dl White Blood Count 9.4 4.4-10.8 10^3/uL Red Blood Count 4.38 L 4.5-5.90 10^6/uL Hemoglobin 13.9 13.5-17.5 g/dL Hematocrit 39.4 L 41.0-53.0 % Mean Corpuscular Volume 90.0 80.0-100.0 fL Mean Corpuscular Hemoglobin 31.9 28.0-32.0 pg Mean Corpuscular Hemoglobin Concent 35.4 32.0-36.0 g/dL Red Cell Distribution Width 13.4 11.8-14.3 % Platelet Count 118 L 140-450 10^3/uL Mean Platelet Volume 9.1 6.9-10.8 fL Neutrophils (%) (Auto) 74.9 37.0-80.0 % Lymphocytes (%) (Auto) 16.0 10.0-50.0 % Monocytes (%) (Auto) 8.1 0.0-12.0 % Eosinophils (%) (Auto) 0.4 0.0-7.0 % Basophils (%) (Auto) 0.6 0.0-2.0 % Neutrophils # (Auto) 7.1 1.6-8.6 10 ^3/uL Lymphocytes # (Auto) 1.5 0.4-5.4 10 ^3/uL Monocytes # (Auto) 0.8 0-1.3 10 ^3/uL Eosinophils # (Auto) 0 0-0.8 10 ^3/uL Basophils # (Auto) 0.1 0-0.2 10 ^3/uL Nucleated Red Blood Cells 0.2 % Sodium Level 137 136-145 mmol/L Potassium Level 4.0 3.5-5.1 mmol/L Chloride Level 106 98-107 mmol/L Carbon Dioxide Level 23 20-31 mmol/L Anion Gap 8 5-15 Blood Urea Nitrogen 11 9-23 mg/dL Creatinine 1.37 H 0.700-1.30 mg/dL Glomerular Filtration Rate Calc 57 >90 mL/min BUN/Creatinine Ratio 8.0 L 10.0-20.0 Serum Glucose 150 H 74-106 mg/dL Calcium Level 9.3 8.7-10.4 mg/dL Hemoglobin A1c 6.9 H <5.7 % A1C Magnesium Level 1.7 1.6-2.6 mg/dL Total Bilirubin 0.8 0.2-1.0 mg/dL Aspartate Amino Transferase (AST) 20 13-40 U/L Alanine Aminotransferase (ALT) 17 7-40 U/L Alkaline Phosphatase 66 46-116 U/L Creatine Kinase 130 46-171 U/L Total Protein 6.8 5.7-8.2 g/dL Albumin 4.2 3.2-4.8 g/dL Thyroid Stimulating Hormone (TSH) 1.51 0.55-4.78 uIU/mL Plasma/Serum Blood Alcohol < 3.0 <10 mg/dL Urine Color Light-yellow Yellow Urine Clarity Clear Clear Urine pH 6.5 5.0-9.0 Urine Specific [place] 1.019 1.001-1.035 Urine Protein Negative Negative Urine Ketones Negative Negative Urine Blood 1+ H Negative /uL Urine Nitrite Negative Negative Urine Bilirubin Negative Negative Urine Urobilinogen Normal Negative mg/dL Urine Leukocyte Esterase Negative Negative /uL Urine RBC 29 0 - 3 /hpf Urine WBC <1 0 - 3 /hpf Urine Squamous Epithelial Cells Few <5 /hpf Urine Bacteria None seen None Seen /hpf Urine Glucose Normal Normal mg/dL Urine Opiates Screen Neg NEGATIVE Urine Fentanyl Screen Neg NEGATIVE Urine Barbiturates Screen Neg NEGATIVE Urine Phencyclidine Screen Neg NEGATIVE Urine Amphetamines Screen Neg NEGATIVE Urine Benzodiazepines Screen Neg NEGATIVE Urine Cocaine Screen Neg NEGATIVE Urine Cannabinoids Screen Neg NEGATIVE Test 07/06/24 16:27 Range/Units Microbiology Date/Time Source Procedure Growth Status 07/07/24 08:50 Voided Urine Urine Culture - Preliminary Resulted 07/07/24 06:48 Blood Blood Culture - Preliminary NO GROWTH AFTER 24 HOURS OF INCUBATION. Resulted Assessment as above left ureteral stones with obstruction Plan/Recommendation KUB today, pt will be turned over to urological institute [place] Plan discussed with: Patient MICH BONILLA MD Jul 08, 2024 13:01
--- NOTE | 2024-07-08 16:08 | DVH ---
Date: 07/08/2024 03:38 PM Examination: XY KUB ABDOMEN SINGLE VIEW History: left ureteral stones Comparison: None TECHNIQUE: Frontal views of the abdomen was obtained. FINDINGS: Bowel gas pattern is unremarkable. 4 mm calculus in the pelvis on the left may represent a calcified pelvic phlebolith calculus. The lung bases are unremarkable. No acute osseous abnormality identified. IMPRESSION: 1. 4 mm calculus in the pelvis on the left.
--- NOTE | 2024-07-08 16:58 | DVHPN2 ---
Subjective Feels better Reviewed: Care Plan, H&P, Labs, Medications, Previous Orders, Radiology, Other ([employer]erson/urology) Changes from previous H/P or p: No Changes Objective Vitals Vital Signs Date Time Temp Pulse Resp B/P (MAP) Pulse Ox O2 Delivery O2 Flow Rate FiO2 07/08/24 16:47 98.1 70 18 133/63 (86) 96 98.1 07/08/24 07:56 Room Air* 0 21 Intake/Output Intake and Output 07/08/24 07:00 Intake Total 3775 ml Output Total 100 ml Balance 3675 ml Intake Oral 1100 ml IV Total 2675 ml Output Urine Total 0 ml Emesis 100 ml # Voids 8 General Appearance: Alert, Oriented X3, Cooperative, No acute distress HEENT: Atraumatic Lungs: Clear to auscultation Cardiovascular: Regular rate Abdomen: Normal bowel sounds, Soft, Other (Mild tenderness in the left flank area) Medications Current Medications Medications Dose Ordered Sig/Jace Route Start Time Stop Time Status Last Admin Dose Admin Acetaminophen 650 mg Q6HP PRN PO 07/06/24 20:30 07/08/24 11:17 650 MG Morphine Sulfate 2 mg Q4HPRN PRN IV 07/06/24 20:30 07/08/24 09:39 2 MG Sodium Chloride 10 ml Q8HR IV 07/06/24 22:00 07/08/24 06:00 10 ML Ondansetron HCl 4 mg Q4HP PRN IV 07/06/24 20:30 07/07/24 00:31 4 MG Docusate Sodium 100 mg BIDPRN PRN PO 07/06/24 20:30 Nitroglycerin 0.4 mg Q5MINP PRN SL 07/06/24 20:30 Morphine Sulfate 2 mg Q30M PRN IV 07/06/24 20:30 Sodium Chloride 1,000 ml @ 125 mls/hr Q8H IV 07/06/24 20:45 07/08/24 08:40 125 MLS/HR Tamsulosin HCl 0.4 mg QPM PO 07/07/24 18:00 07/07/24 17:37 0.4 MG Hydralazine HCl 10 mg Q6HP PRN IV 07/06/24 23:45 07/07/24 18:34 10 MG Ceftriaxone Sodium 50 ml @ 100 mls/hr DAILY@09 IV 07/07/24 09:00 07/08/24 08:40 100 MLS/HR Diagnostic Test (Pha) 1 strip ACHS 07/07/24 17:00 07/08/24 11:12 1 STRIP Insulin Human Regular ACHS SC 07/07/24 17:00 07/08/24 11:17 4 UNITS Dextrose 50 ml UD PRN IV 07/07/24 12:15 Laboratory Results Laboratory Tests 07/08/24 06:11 Chemistry Test 07/08/24 06:11 Calcium Level 9.3 mg/dL (8.7-10.4) Urinalysis Test 07/06/24 16:44 Urine Color Light-yellow (Yellow) Urine Clarity Clear (Clear) Urine pH 6.5 (5.0-9.0) Urine Specific [place] 1.019 (1.001-1.035) Urine Protein Negative (Negative) Urine Ketones Negative (Negative) Urine Blood 1+ /uL (Negative) H Urine Nitrite Negative (Negative) Urine Bilirubin Negative (Negative) Urine Urobilinogen Normal mg/dL (Negative) Urine Leukocyte Esterase Negative /uL (Negative) Urine RBC 29 /hpf (0 - 3) Urine WBC <1 /hpf (0 - 3) Urine Squamous Epithelial Cells Few /hpf (<5) Urine Bacteria None seen /hpf (None Seen) Urine Glucose Normal mg/dL (Normal) Microbiology Microbiology Date/Time Source Procedure Growth Status 07/07/24 08:50 Voided Urine Urine Culture - Preliminary Resulted 07/07/24 06:48 Blood Blood Culture - Preliminary NO GROWTH AFTER 24 HOURS OF INCUBATION. Resulted Assessment/Plan Assessment/Plan Left nephrolithiasis Obstructive uropathy Diabetes Chronic kidney disease stage IIIA BPH Plan: Patient will be seen tomorrow by Dr. Bond for further plans Plan discussed with: Patient Date of Service: Jul 08, 2024 Billing Provider: CORBIN FRAIRE MD Common Visit Codes: [id number] INP/OBS CARE(MOD) CORBIN FRAIRE MD Jul 08, 2024 16:58
--- NOTE | 2024-07-08 19:39 | DVHINCON2 ---
Date of service: Jul 08, [address] 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 Reason for Consultation Left renal colic mild left hydronephrosis 5 mm left ureteral stone 5 mm left renal stone History of Present Illness 63 year old male admitted to [facility] with a chief complaint of LT flank pain onset today around 14:00. Patient states he began experiencing similar pain about 2 months ago, PCP sent him for imaging and was told he had a kidney stone. Patient has a past medical history of DM and kidney stones. Denies fever, chills, nausea, vomiting, chest pain, shortness of breath, dysuria, hematuria. No other symptoms or modifying factors present at this time. Patient is also known to [facility] [place] for history of BPH and kidney stones. He was last evaluated by cystoscopy performed at [facility] [place] on January of this year by . Reviewed notes: Medications, Allergies Allergies: Coded Allergies: NO KNOWN ALLERGIES (Unverified , 07/06/24) Information Source: Patient Mode of Arrival: Ambulatory Severity: Moderate Timing: Hours Duration: Since onset Has not urinated for: Hours Prehospital treatment: None History of: Kidney stone Location: (L)Flank associated signs and symptoms: Flank Pain Past Medical History DM, Kidney Stones and BPH Past Surgical History Hernia Repair Cystoscopy Family History: Diabetes mellitus G8 MOTHER G8 FATHER Allergies: Coded Allergies: NO KNOWN ALLERGIES (Unverified , 07/06/24) Current Medications Current Medications Medications (Trade) Dose Ordered Sig/Jace Route PRN Reason Start Time Stop Time Status Last Admin Ceftriaxone Sodium 50 ml @ 100 mls/hr DAILY@2300 IV 07/07/24 23:00 07/07/24 06:08 DC Ceftriaxone Sodium/Dextrose 50 ml @ 50 mls/hr DAILY@2300 IV 07/07/24 23:00 07/07/24 09:32 DC Review of Systems Constitutional: denies: chills, diaphoresis, fatigue, fever, malaise, sweats, weakness, others EENTM: denies: blurred vision, double vision, ear bleeding, ear discharge, ear drainage, ear pain, ear ringing, eye pain, eye redness, hearing loss, mouth pain, mouth swelling, nasal discharge, nose bleeding, nose congestion, nose pain, photophobia, tearing, throat pain, throat swelling, voice changes, others Respiratory: denies: cough, hemoptysis, orthopnea, SOB at rest, shortness of breath, SOB with excertion, stridor, wheezing, others Cardiovascular: denies: chest pain, dizzy spells, diaphoresis, Dyspnea on exertion, edema, irregular heart beat, left arm pain, lightheadedness, palpitations, PND, syncope, others Gastrointestinal: denies: abdomen distended, abdominal pain, blood streaked bowels, constipated, diarrhea, dysphagia, difficulty swallowing, hematemesis, melena, nausea, poor appetite, poor fluid intake, rectal bleeding, rectal pain, vomiting, others Genitourinary: reports: flank pain (LT flank pain); denies: burning, dysuria, frequency, hematuria, incontinence, penile discharge, penile sore, pain, testicle pain, testicle swelling, urgency, others Neurological: denies: dizziness, fainting, headache, left sided numbness, left sided weakness, numbness, paresthesia, pre-existing deficit, right sided numbness, right sided weakness, seizure, speech problems, tingling, tremors, weakness, others Musculoskeletal: denies: back pain, gout, joint pain, joint swelling, muscle pain, muscle stiffness, neck pain, others Integumetry: denies: bruises, change in color, change in hair/nails, dryness, laceration, lesions, lumps, rash, wounds, others Allergic/Immunocompromised: denies: Difficulty Healing, Frequent Infections, Hives, Itching, others Hematologic/Lymphatic: denies: anemia, blood clots, easy bleeding, easy bruising, swollen glands, others Endocrine: denies: excessive hunger, excessive sweating, excessive thirst, excessive urination, flushing, intolerance to cold, intolerance to heat, unexplained weight gain, unexplained weight loss, others Psychiatric: denies: anxiety, bipolar disorder, depression, hopeless, panic di sorder, schizophrenia, sleepless, suicidal, others All Other Systems: Reviewed and Negative Vital Signs Vital Signs Date Time Temp Pulse Resp B/P (MAP) Pulse Ox O2 Delivery O2 Flow Rate FiO2 07/08/24 16:47 98.1 70 18 133/63 (86) 96 98.1 07/08/24 07:56 Room Air* 0 21 Physical Exam General Appearance: Normal, Other (appears uncomfortable) HEENT: Normal ENT Inspection, Pharynx Normal, TMs Normal Neck: Full Range of Motion, Non-Tender, Normal, Normal Inspection Respiratory: Chest Non-Tender, Lungs Clear, No Accessory Muscle Use, No Respiratory Distress, Normal Breath Sounds Cardiovascular: No Edema, No JVD, No Murmur, No Gallop, Normal Peripheral Pulses, Regular Rate/Rhythm Breast Exam: Deferred Gastrointestinal: No Organomegaly, Non Tender, No Pulsatile Mass, Normal Bowel Sounds, Soft Genitalia: Deferred Pelvic: Deferred Rectal: Deferred Extremities: No calf tenderness, Normal capillary refill, Normal inspection, Normal range of motion, Non-tender, No pedal edema Musculoskeletal : Apperance: Normal Neurologic: Alert, elementary reading tutor II-XII nml as Tested, No Motor Deficits, Normal Affect, Normal Mood, No Sensory Deficits Cerebellar Function: Normal Reflexes: Normal Skin: Dry, Normal Color, Warm Lymphatic: No Adenopathy Labs/Diagnostic Data Labs Test 07/08/24 16:52 07/08/24 06:11 07/07/24 04:21 07/06/24 16:44 Range/Units POC Glucose 138 H 70-106 mg/dl White Blood Count 9.4 4.4-10.8 10^3/uL Red Blood Count 4.38 L 4.5-5.90 10^6/uL Hemoglobin 13.9 13.5-17.5 g/dL Hematocrit 39.4 L 41.0-53.0 % Mean Corpuscular Volume 90.0 80.0-100.0 fL Mean Corpuscular Hemoglobin 31.9 28.0-32.0 pg Mean Corpuscular Hemoglobin Concent 35.4 32.0-36.0 g/dL Red Cell Distribution Width 13.4 11.8-14.3 % Platelet Count 118 L 140-450 10^3/uL Mean Platelet Volume 9.1 6.9-10.8 fL Neutrophils (%) (Auto) 74.9 37.0-80.0 % Lymphocytes (%) (Auto) 16.0 10.0-50.0 % Monocytes (%) (Auto) 8.1 0.0-12.0 % Eosinophils (%) (Auto) 0.4 0.0-7.0 % Basophils (%) (Auto) 0.6 0.0-2.0 % Neutrophils # (Auto) 7.1 1.6-8.6 10 ^3/uL Lymphocytes # (Auto) 1.5 0.4-5.4 10 ^3/uL Monocytes # (Auto) 0.8 0-1.3 10 ^3/uL Eosinophils # (Auto) 0 0-0.8 10 ^3/uL Basophils # (Auto) 0.1 0-0.2 10 ^3/uL Nucleated Red Blood Cells 0.2 % Sodium Level 137 136-145 mmol/L Potassium Level 4.0 3.5-5.1 mmol/L Chloride Level 106 98-107 mmol/L Carbon Dioxide Level 23 20-31 mmol/L Anion Gap 8 5-15 Blood Urea Nitrogen 11 9-23 mg/dL Creatinine 1.37 H 0.700-1.30 mg/dL Glomerular Filtration Rate Calc 57 >90 mL/min BUN/Creatinine Ratio 8.0 L 10.0-20.0 Serum Glucose 150 H 74-106 mg/dL Calcium Level 9.3 8.7-10.4 mg/dL Hemoglobin A1c 6.9 H <5.7 % A1C Magnesium Level 1.7 1.6-2.6 mg/dL Total Bilirubin 0.8 0.2-1.0 mg/dL Aspartate Amino Transferase (AST) 20 13-40 U/L Alanine Aminotransferase (ALT) 17 7-40 U/L Alkaline Phosphatase 66 46-116 U/L Creatine Kinase 130 46-171 U/L Total Protein 6.8 5.7-8.2 g/dL Albumin 4.2 3.2-4.8 g/dL Thyroid Stimulating Hormone (TSH) 1.51 0.55-4.78 uIU/mL Plasma/Serum Blood Alcohol < 3.0 <10 mg/dL Urine Color Light-yellow Yellow Urine Clarity Clear Clear Urine pH 6.5 5.0-9.0 Urine Specific [place] 1.019 1.001-1.035 Urine Protein Negative Negative Urine Ketones Negative Negative Urine Blood 1+ H Negative /uL Urine Nitrite Negative Negative Urine Bilirubin Negative Negative Urine Urobilinogen Normal Negative mg/dL Urine Leukocyte Esterase Negative Negative /uL Urine RBC 29 0 - 3 /hpf Urine WBC <1 0 - 3 /hpf Urine Squamous Epithelial Cells Few <5 /hpf Urine Bacteria None seen None Seen /hpf Urine Glucose Normal Normal mg/dL Urine Opiates Screen Neg NEGATIVE Urine Fentanyl Screen Neg NEGATIVE Urine Barbiturates Screen Neg NEGATIVE Urine Phencyclidine Screen Neg NEGATIVE Urine Amphetamines Screen Neg NEGATIVE Urine Benzodiazepines Screen Neg NEGATIVE Urine Cocaine Screen Neg NEGATIVE Urine Cannabinoids Screen Neg NEGATIVE Test 07/06/24 16:27 Range/Units Microbiology Date/Time Source Procedure Growth Status 07/07/24 08:50 Voided Urine Urine Culture - Preliminary Resulted 07/07/24 06:48 Blood Blood Culture - Preliminary NO GROWTH AFTER 24 HOURS OF INCUBATION. Resulted PATIENT: REDDY OROZCO ACCT: [id number] UNIT: [id number] : 1960 LOC: ER ROOM / BED: / AGE / SEX: 63 / M ADM STATUS: REG ER SERVICE 1600 ORDERING PHYSICIAN: JB LEW MD PROCEDURE(s): ABPL - CT AB PEL WO CON-NO ORAL OR IV REASON: left flank pain ORDER NUMBER(s): [id number], ACCESSION NUMBER(s): [id number] Exam: CT CT AB PEL WO CON-NO ORAL OR IV History: left flank pain Comparison Study: 12/22/2023 report only TECHNIQUE: Multidetector CT of the abdomen and pelvis without contrast. Axial, coronal and sagittal multiplanar reformats were obtained from the axial data set by the technologist. Radiation Dose Information: CT Dose: CTDI volume is 19.94 mGy. Dose-length product is 1064.16 mGy*cm FINDINGS: Bibasilar atelectasis. Partially visualized heart is unremarkable. Liver, spleen, gallbladder, pancreas and right adrenal glands unremarkable. 2.2 cm left adrenal nodule which may represent an adenoma. Right kidney, and ureter unremarkable. Punctate nonobstructing left renal calculus. 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 There is [id number] left-sided hydroureteronephrosis. There is mild left-sided perinephric fat stranding which is most likely from the hydronephrosis . 5 mm obstructing calculus within the left distal ureter. 3 mm calculus of the left posterior urinary bladder. Mild wall thickening of the urinary bladder. Enlarged prostate. Stomach is unremarkable. Small bowel loops unremarkable. Appendix is unremarkable. Large bowel is unremarkable. No evidence of intraperitoneal free air or free fluid. Mild mesenteric fat stranding of the mid to lower abdomen. No evidence of aortic aneurysm. Mild atherosclerotic calcification of the aorta and bilateral iliacs. No significant lymphadenopathy. Small fat containing right inguinal hernia. Small fat containing umbilical her joel. No destructive osseous lesions are noted. IMPRESSION: 5 mm obstructing calculus over the left distal ureter causing [id number] left-sided hydroureteronephrosis. 3 mm calculus of the posterior left urinary bladder . Wall thickening of the uri nary bladder which may be due to inadequate distention/ cystitis. Recommend correlation with urinalysis. Enlarged prostate. Recommend correlation with PSA. Mild mesenteric fat stranding of the mid to lower abdomen which may represent mesenteric panniculitis in the right clinical setting. Correlate clinically. 2.2 cm left adrenal nodule which may represent an adenoma. ATED BY: APRIL PASCUAL DO DICTATED DATE/TIME: 07/06/241702 SIGNED BY: APRIL PASCUAL DO SIGNED DATE/TIME: 07/06/241702 CC: Assessment Left flank pain 5 mm left ureteral calculus Mild left hydronephrosis 5 mm left renal calculus History of BPH Plan/Recommendation I appreciate the coverage by Dr. Crane PSA is pending Patient is somewhat controlled in terms of his pain with IV narcotics Extracorporeal shockwave lithotripsy with possible stent placement to be arranged for 07/09/2024 based on the availability of the lithotripsy machine Plan discussed with: Patient, Spouse, Other JEANNETTE MCGOWAN MD Jul 08, 2024 19:39
[2024-07-09] VITALS (9 sets, daily range): BP systolic 138–163; BP diastolic 79–97; PULSE 63–96; RESP 13–19; TEMP 97.7–98.3; O2SAT 95–98
[2024-07-09] MEDS ORDERED: ROCURONIUM 10MG/ML 10ML VIAL IV ONE (15:57)
--- NOTE | 2024-07-09 16:33 | DVHPN2 ---
Subjective Seen and examined at bedside, for lithrotripsy today Reviewed: Care Plan, H&P, Labs, Medications, Previous Orders, Radiology, Other (Quality Control Coordinator/urology) Changes from previous H/P or p: No Changes Objective Vitals Vital Signs Date Time Temp Pulse Resp B/P (MAP) Pulse Ox O2 Delivery O2 Flow Rate FiO2 07/09/24 15:19 87 18 161/87 (111) 97 07/09/24 09:00 97.8 97.8 07/09/24 08:00 Room Air* 0 21 Intake/Output Intake and Output 07/09/24 07:00 Intake Total 3825 ml Output Total 0 ml Balance 3825 ml Intake Oral 1825 ml IV Total 2000 ml Stool Total 0 ml # Voids 8 General Appearance: Alert, Oriented X3, Cooperative, No acute distress HEENT: Atraumatic Lungs: Clear to auscultation Cardiovascular: Regular rate Abdomen: Normal bowel sounds, Soft, Other (Mild tenderness in the left flank area) Medications Current Medications Medications Dose Ordered Sig/Jace Route Start Time Stop Time Status Last Admin Dose Admin Acetaminophen 650 mg Q6HP PRN PO 07/06/24 20:30 07/08/24 21:17 650 MG Morphine Sulfate 2 mg Q4HPRN PRN IV 07/06/24 20:30 07/08/24 09:39 2 MG Sodium Chloride 10 ml Q8HR IV 07/06/24 22:00 07/09/24 06:00 10 ML Ondansetron HCl 4 mg Q4HP PRN IV 07/06/24 20:30 07/07/24 00:31 4 MG Docusate Sodium 100 mg BIDPRN PRN PO 07/06/24 20:30 Nitroglycerin 0.4 mg Q5MINP PRN SL 07/06/24 20:30 Morphine Sulfate 2 mg Q30M PRN IV 07/06/24 20:30 Sodium Chloride 1,000 ml @ 125 mls/hr Q8H IV 07/06/24 20:45 07/09/24 08:44 125 MLS/HR Tamsulosin HCl 0.4 mg QPM PO 07/07/24 18:00 07/08/24 16:55 0.4 MG Hydralazine HCl 10 mg Q6HP PRN IV 07/06/24 23:45 07/07/24 18:34 10 MG Ceftriaxone Sodium 50 ml @ 100 mls/hr DAILY@09 IV 07/07/24 09:00 07/09/24 08:42 100 MLS/HR Diagnostic Test (Pha) 1 strip ACHS 07/07/24 17:00 07/09/24 11:03 1 STRIP Insulin Human Regular ACHS SC 07/07/24 17:00 07/09/24 11:03 2 UNITS Dextrose 50 ml UD PRN IV 07/07/24 12:15 Laboratory Results Laboratory Tests 07/08/24 06:11 Urinalysis Test 07/06/24 16:44 Urine Color Light-yellow (Yellow) Urine Clarity Clear (Clear) Urine pH 6.5 (5.0-9.0) Urine Specific [place] 1.019 (1.001-1.035) Urine Protein Negative (Negative) Urine Ketones Negative (Negative) Urine Blood 1+ /uL (Negative) H Urine Nitrite Negative (Negative) Urine Bilirubin Negative (Negative) Urine Urobilinogen Normal mg/dL (Negative) Urine Leukocyte Esterase Negative /uL (Negative) Urine RBC 29 /hpf (0 - 3) Urine WBC <1 /hpf (0 - 3) Urine Squamous Epithelial Cells Few /hpf (<5) Urine Bacteria None seen /hpf (None Seen) Urine Glucose Normal mg/dL (Normal) Microbiology Microbiology Date/Time Source Procedure Growth Status 07/07/24 08:50 Voided Urine Urine Culture - Final Complete 07/07/24 06:48 Blood Blood Culture - Preliminary NO GROWTH AFTER 48 HOURS OF INCUBATION. Resulted Assessment/Plan Assessment/Plan Left nephrolithiasis- For Lithrotripsy Obstructive uropathy Diabetes A1c 6.9- Tight glycemic control BPH Goals of care- FULL CODE Plan discussed with: Patient Date of Service: Jul 09, 2024 Billing Provider: MARIA TERESA SPANN MD Common Visit Codes: [id number] INP/OBS CARE(HIGH) Secondary Visit Codes: [id number] CARE PLAN 30 MINUTES MARIA TERESA SPANN MD Jul 09, 2024 16:33
[2024-07-09] MEDS ORDERED: HYDROmorphone HCL 2 MG/ML VL/or syr IV PRN (16:45)
--- NOTE | 2024-07-09 16:52 | DVHOP2 ---
Operative Report - 2 Report Details Date: 07/09/24 Preop Diagnosis: Left distal ureteral calculus, 5 mm Left renal calculus, 5 mm Postop Diagnosis: Same Surgeon: Jeannette Mcgowan Anesthesiologist: Dr. Sharif Anesthesia: General Consent: The patient was informed of the risks and benefits of the procedure. These include but are not limited to complications of anesthesia, postoperative infection, incomplete relief of symptoms, recurrence of symptoms, damage to blood vessels, nerves and tendons, deep venous thrombosis, pulmonary embolism and possible need for repeat surgery in the future. Indications for Surgery: Symptomatic left renal and ureteral calculi Name of Procedure Performed Extracorporeal shockwave lithotripsy of left distal ureteral calculus Extracorporeal shockwave lithotripsy of left renal calculus Procedure Details Procedure Details: Patient was taken to the operating room and underwent general anesthesia. He was placed in supine position on the lithotripsy table. The stones were localized onto the F2 focus. The distal ureteral calculus was treated with 3000 shock waves for fragmentation of the level nine. The left kidney stone was treated with 2500 shock waves at level six. Good fragmentation and visualized throughout the process. Patient tolerated the procedure well. He was awakened and taken to recovery room in stable condition. Stent placement was not necessary Specimen: None Condition Good Disposition Home JEANNETTE MCGOWAN MD Jul 09, 2024 16:52
[2024-07-09] MEDS ORDERED: HYDROmorphone HCL 2 MG/ML VL/or syr ONE (16:59)
[2024-07-09] MEDS ORDERED: ONDANSETRON HCL 4 MG/2 ML VIAL ONE (17:40)
[2024-07-09] MEDS ORDERED: FUROSEMIDE 20 MG/2 ML VIAL ONE (17:40)
--- NOTE | 2024-07-09 18:03 | MEDREC ---
[facility] Intervention Section I [facility] Intervention: Review courses of therapy (PLEASE CONSIDER D/C ANTIBIOTIC(S) IN ABSENCE OF BACTERIAL INFECTION ) GERRY RODRÍGUEZ PHARMACIST Jul 09, 2024 18:03
[2024-07-09] MEDS: CIPROFLOXACIN 400MG/200ML 200 ML IV ONE (18:32)
[2024-07-09] MEDS: IOHEXOL 300 MG/ML 100ML BOTTLE IJ ONE (18:32)
[2024-07-09] MEDS: ONDANSETRON HCL 4 MG/2 ML VIAL IV ONE (18:33)
[2024-07-10 01:00] VITALS: BP 147/84; PULSE 89; RESP 18; TEMP 98.4; O2SAT 93
[2024-07-10 05:00] VITALS: BP 149/90; PULSE 98; RESP 19; TEMP 99.2; O2SAT 94
[2024-07-10 09:00] VITALS: BP 137/83; PULSE 89; RESP 16; TEMP 97.5; O2SAT 95
[2024-07-10 13:00] VITALS: BP 138/77; PULSE 88; RESP 16; TEMP 97.6; O2SAT 98
[2024-07-10] MEDS ORDERED: TAMS-35 PO (14:23)
[2024-07-10] MEDS ORDERED: CEPH250C PO (14:23)
--- NOTE | 2024-07-10 14:27 | DVHDS2 ---
Discharge Summary Date of Admission Jul 06, 2024 at 20:25 Date of Discharge: Jul 10, 2024 Admitting Diagnosis Left renal calculus Labs/Diagnostic Data: Laboratory Results Test 07/10/24 10:58 07/08/24 06:11 07/07/24 04:21 07/06/24 16:44 POC Glucose 236 mg/dl (70-106) White Blood Count 9.4 10^3/uL (4.4-10.8) Red Blood Count 4.38 10^6/uL (4.5-5.90) Hemoglobin 13.9 g/dL (13.5-17.5) Hematocrit 39.4 % (41.0-53.0) Mean Corpuscular Volume 90.0 fL (80.0-100.0) Mean Corpuscular Hemoglobin 31.9 pg (28.0-32.0) Mean Corpuscular Hemoglobin Concent 35.4 g/dL (32.0-36.0) Red Cell Distribution Width 13.4 % (11.8-14.3) Platelet Count 118 10^3/uL (140-450) Mean Platelet Volume 9.1 fL (6.9-10.8) Neutrophils (%) (Auto) 74.9 % (37.0-80.0) Lymphocytes (%) (Auto) 16.0 % (10.0-50.0) Monocytes (%) (Auto) 8.1 % (0.0-12.0) Eosinophils (%) (Auto) 0.4 % (0.0-7.0) Basophils (%) (Auto) 0.6 % (0.0-2.0) Neutrophils # (Auto) 7.1 10 ^3/uL (1.6-8.6) Lymphocytes # (Auto) 1.5 10 ^3/uL (0.4-5.4) Monocytes # (Auto) 0.8 10 ^3/uL (0-1.3) Eosinophils # (Auto) 0 10 ^3/uL (0-0.8) Basophils # (Auto) 0.1 10 ^3/uL (0-0.2) Nucleated Red Blood Cells 0.2 % Sodium Level 137 mmol/L (136-145) Potassium Level 4.0 mmol/L (3.5-5.1) Chloride Level 106 mmol/L (98-107) Carbon Dioxide Level 23 mmol/L (20-31) Anion Gap 8 (5-15) Blood Urea Nitrogen 11 mg/dL (9-23) Creatinine 1.37 mg/dL (0.700-1.30) Glomerular Filtration Rate Calc 57 mL/min (>90) BUN/Creatinine Ratio 8.0 (10.0-20.0) Serum Glucose 150 mg/dL (74-106) Calcium Level 9.3 mg/dL (8.7-10.4) Hemoglobin A1c 6.9 % A1C (<5.7) Magnesium Level 1.7 mg/dL (1.6-2.6) Total Bilirubin 0.8 mg/dL (0.2-1.0) Aspartate Amino Transferase (AST) 20 U/L (13-40) Alanine Aminotransferase (ALT) 17 U/L (7-40) Alkaline Phosphatase 66 U/L (46-116) Creatine Kinase 130 U/L (46-171) Total Protein 6.8 g/dL (5.7-8.2) Albumin 4.2 g/dL (3.2-4.8) Thyroid Stimulating Hormone (TSH) 1.51 uIU/mL (0.55-4.78) Plasma/Serum Blood Alcohol < 3.0 mg/dL (<10) Urine Color Light-yellow (Yellow) Urine Clarity Clear (Clear) Urine pH 6.5 (5.0-9.0) Urine Specific [place] 1.019 (1.001-1.035) Urine Protein Negative (Negative) Urine Ketones Negative (Negative) Urine Blood 1+ /uL (Negative) Urine Nitrite Negative (Negative) Urine Bilirubin Negative (Negative) Urine Urobilinogen Normal mg/dL (Negative) Urine Leukocyte Esterase Negative /uL (Negative) Urine RBC 29 /hpf (0 - 3) Urine WBC <1 /hpf (0 - 3) Urine Squamous Epithelial Cells Few /hpf (<5) Urine Bacteria None seen /hpf (None Seen) Urine Glucose Normal mg/dL (Normal) Urine Opiates Screen Neg (NEGATIVE) Urine Fentanyl Screen Neg (NEGATIVE) Urine Barbiturates Screen Neg (NEGATIVE) Urine Phencyclidine Screen Neg (NEGATIVE) Urine Amphetamines Screen Neg (NEGATIVE) Urine Benzodiazepines Screen Neg (NEGATIVE) Urine Cocaine Screen Neg (NEGATIVE) Urine Cannabinoids Screen Neg (NEGATIVE) Test 07/06/24 16:27 Other Laboratory Tests 07/08/24 06:11 Brief Hx & Hospital Course: 63 year old male admitted to [facility] with a chief complaint of LT flank pain onset today around 14:00. Patient states he began experiencing similar pain about 2 months ago, PCP sent him for imaging and was told he had a kidney stone. Patient has a past medical history of DM and kidney stones. Denies fever, chills, nausea, vomiting, chest pain, shortness of breath, dysuria, hematuria. No other symptoms or modifying factors present at this time. Patient is also known to u[facility] [place] for history of BPH and kidney stones. Patient underwent Extracorporeal shockwave lithotripsy of left distal ureteral calculus and Extracorporeal shockwave lithotripsy of left renal calculus. Tolerated the procedure well. Patient will be discharged home with Keflex and Flomax. Operations or Procedures Operative Report - 2 Report Details Date: 07/09/24 Preop Diagnosis: Left distal ureteral calculus, 5 mm Left renal calculus, 5 mm Postop Diagnosis: Same Surgeon: Rg Bond Anesthesiologist: Dr. Sharif Anesthesia: General Consent: The patient was informed of the risks and benefits of the procedure. These include but are not limited to complications of anesthesia, postoperative infection, incomplete relief of symptoms, recurrence of symptoms, damage to blood vessels, nerves and tendons, deep venous thrombosis, pulmonary embolism and possible need for repeat surgery in the future. Indications for Surgery: Symptomatic left renal and ureteral calculi Name of Procedure Performed Extracorporeal shockwave lithotripsy of left distal ureteral calculus Extracorporeal shockwave lithotripsy of left renal calculus Procedure Details Procedure Details: Patient was taken to the operating room and underwent general anesthesia. He was placed in supine position on the lithotripsy table. The stones were localized onto the F2 focus. The distal ureteral calculus was treated with 3000 shock waves for fragmentation of the level nine. The left kidney stone was treated with 2500 shock waves at level six. Good fragmentation and visualized throughout the process. Patient tolerated the procedure well. He was awakened and taken to recovery room in stable condition. Stent placement was not necessary Specimen: Condition at Discharge: Good Final Diagnosis/Problems List Left renal calculus Obstructive uropathy Diabetes A1c 6.9- Tight glycemic control BPH Discharge Disposition: Home Discharge Instruct/Medications Diet: Consistent carbohydrate Activity: Light activity Follow Up/Referral: PCP Medications: see [facility] Discharge Statement: "Patient was advised to return to the ER or call 911 if any headaches, dizziness, shortness of breath, chest pain, abdominal pain, bleeding, fevers, or worsening of medical condition. Patient was counseled about treatment plan, medications, possible side effects, patientverbalized understanding. All questions were answered to the best of my ability. This discharge took greater then 30 minutes in planning, reviewing documentation, counseling the patient, and discussing with other team members." ASSESSMENT ASSESSMENT Assessment Same Date of Service: Jul 10, 2024 Billing Provider: MARIA TERESA SPANN MD Common Visit Codes: 71125-JPE/OBS DISCH DAY >30min MARIA TERESA SPANN MD Jul 10, 2024 14:27
[2024-07-11 13:07] LABS: Prostate Specific Antigen 5.7 ng/mL (0.0-4.0)
[2024-07-11 14:06] LABS: PSA Free 1.73 ng/mL
== END 2024-07-10 18:22 | disposition home or self-care (01) | DRG 694 ==
LOC: ER 15:51 → OVERFLOW 20:25 → EAST 07-07 07:20
PROVIDERS: ADMIT Internal Medicine; ATTEND Internal Medicine
PROC: 0TF4XZZ Fragmentation in Left Kidney Pelvis, External Approach (ICD-10-PCS; 2024-07-09)
PROC: 0TF7XZZ Fragmentation in Left Ureter, External Approach (ICD-10-PCS; principal; 2024-07-09 16:28)
DX: N13.2 Hydronephrosis with renal and ureteral calculous obstruction (principal); E27.8 Other specified disorders of adrenal gland; N40.0 Benign prostatic hyperplasia without lower urinary tract symptoms; N18.31 Chronic kidney disease, stage 3a; E11.22 Type 2 diabetes mellitus with diabetic chronic kidney disease; Z87.442 Personal history of urinary calculi; Z83.3 Family history of diabetes mellitus
CPT/HCPCS: 36415; 74018; 74176; 80048; 80053; 80307; 80320; 81001; 82306; 82550; 82607; 82962; 83036; 83735; 84154; 84443; 85025; 87040; 87086; 96361; 96365; 96367; 96375; 99291; G0378; J1815; J1885; J2405

== ENCOUNTER → 2024-10-19 | Outpatient (CLI) | payer OTHER ==
[~2024-10-19] MED LIST: CEPH250C PO; TAMS-35 PO
[2024-10-19 17:46] LABS: Alanine Aminotransferase 21 U/L (7-40); Alkaline Phosphatase 81 U/L (46-116); Anion Gap 8 (5-15); Aspartate Aminotransferase 20 U/L (13-40); BUN/Creatinine Ratio 11.3 (10.0-20.0); Blood Urea Nitrogen 11 mg/dL (9-23); Carbon Dioxide 28 mmol/L (20-31); Chloride 103 mmol/L (98-107); Potassium 4.2 mmol/L (3.5-5.1); Sodium 139 mmol/L (136-145)
[2024-10-19 17:47] LABS: Bilirubin, Total 0.6 mg/dL (0.2-1.0)
[2024-10-19 17:48] LABS: Albumin 4.9 g/dL (3.2-4.8); Calcium 10.4 mg/dL (8.7-10.4); Creatine Kinase IFCC 205 U/L (46-171); Glucose 143 mg/dL (74-106)
[2024-10-21 08:07] LABS: Prostate Specific Antigen 4.9 ng/mL (0.0-4.0)
[2024-10-22 12:07] LABS: PSA Free 1.29 ng/mL
== END | disposition home or self-care (01) ==
LOC: LAB 15:39
PROVIDERS: ATTEND Urology
DX: E83.52 Hypercalcemia (principal); N20.0 Calculus of kidney; R94.4 Abnormal results of kidney function studies
CPT/HCPCS: 36415; 80053; 82550; 84153; 84154

== ENCOUNTER 2025-01-18 08:03 | Outpatient (CLI) | payer OTHER ==
[2025-01-18 08:47] LABS: Chloride 106 mmol/L (98-107); Potassium 4.4 mmol/L (3.5-5.1); Sodium 142 mmol/L (136-145)
[2025-01-18 08:48] LABS: Anion Gap 10 (5-15); Carbon Dioxide 26 mmol/L (20-31)
[2025-01-18 08:49] LABS: Calcium 10.3 mg/dL (8.7-10.4)
[2025-01-18 08:53] LABS: Glucose 170 mg/dL (74-106)
[2025-01-18 08:54] LABS: Creatine Kinase IFCC 134 U/L (46-171); Triglycerides 282 mg/dL (< 150)
[2025-01-18 08:55] LABS: Cholesterol 189 mg/dL (< 200)
[2025-01-18 08:57] LABS: HDL Cholesterol 29 mg/dL (40-59)
[2025-01-18 08:58] LABS: LDL Cholesterol 103 mg/dL (< 100)
[2025-01-18 09:10] LABS: BUN/Creatinine Ratio 14.1 (10.0-20.0); Blood Urea Nitrogen 14 mg/dL (9-23)
== END 2025-01-18 17:00 | disposition home or self-care (01) ==
LOC: LAB 08:03
PROVIDERS: ATTEND Internal Medicine
DX: E11.69 Type 2 diabetes mellitus with other specified complication (principal); E78.2 Mixed hyperlipidemia; E83.52 Hypercalcemia
CPT/HCPCS: 36415; 80048; 80061; 82550; 83036

== ENCOUNTER → 2025-02-06 | Outpatient (CLI) | payer OTHER ==
[2025-02-06 16:05] LABS: Chloride 105 mmol/L (98-107); Potassium 4.2 mmol/L (3.5-5.1); Sodium 142 mmol/L (136-145)
[2025-02-06 16:06] LABS: Anion Gap 8 (5-15); Carbon Dioxide 29 mmol/L (20-31)
[2025-02-06 16:08] LABS: Calcium 10.5 mg/dL (8.7-10.4)
[2025-02-06 16:11] LABS: BUN/Creatinine Ratio 12.5 (10.0-20.0); Blood Urea Nitrogen 13 mg/dL (9-23)
[2025-02-06 16:16] LABS: Glucose 187 mg/dL (74-106)
== END | disposition home or self-care (01) ==
LOC: LAB 15:25
PROVIDERS: ATTEND Internal Medicine
DX: R94.4 Abnormal results of kidney function studies (principal)
CPT/HCPCS: 36415; 80048

== ENCOUNTER 2025-03-04 13:03 | Outpatient (CLI) | payer OTHER | END 2025-03-04 17:00 | disposition home or self-care (01) | LOC: LAB 13:03 | PROVIDERS: ATTEND Internal Medicine | DX: Z12.11 Encounter for screening for malignant neoplasm of colon (principal) | CPT/HCPCS: 82270 ==

== ENCOUNTER 2025-03-29 14:31 | Emergency (ER) | payer OTHER ==
[~2025-03-29] VITALS: Ht 172.7 cm; Wt 81.8 kg
--- NOTE | 2025-03-29 14:42 | ED.PDOC ---
History of Present Illness HPI Comments 64-year-old male with a history of kidney stones, and diabetes, was brought in by emergency services with a chief complaint of a syncopal episode, with the associated lightheadedness, and dizziness. Per EMS patient has been working outside all day, where he started to feel lightheaded, patient proceeded to sit down, and had a syncopal episode and hit his head on a brick. Patient is now noted to have a mild abrasion to the right side of his forehead. Patient denies any loss of consciousness, nausea, vomiting, diarrhea, blurry vision, abnormal mood, or any other associated symptoms, modifiers at this time. Patient is noted to be alert and oriented x4 an answering questions appropriately per baseline. Time Seen by MD: 14:39 Primary Care Provider: RENEE Freire Notes: Nurses Notes, Medications, Allergies Allergies: Coded Allergies: NO KNOWN ALLERGIES (Unverified , 07/06/24) Home Meds Active Scripts Cephalexin (KEFLEX CAPSULE) 250 Mg Cp, 500 MG PO TID for 7 Days, #21 CAP Prov:MARIA TERESA SPANN MD 07/10/24 Tamsulosin Hcl (Flomax) 0.4 Mg Cap, 0.4 MG PO QPM for 30 Days, #30 CAP Prov:MARIA TERESA SPANN MD 07/10/24 Information Source: Patient Mode of Arrival: EMS Severity: Moderate Timing: Hours Duration: Since onset, Hours Prehospital treatment: None Past Medical History PAST MEDICAL HISTORY: DM, Kidney Stones Surgical History: Hernia Repair Family History Family History: Unknown Social History Smoker: Non-Smoker Alcohol: Denies ETOH Use Drugs: Denies Drug Use Lives In: Home Constitutional: denies: chills, diaphoresis, fatigue, fever, malaise, sweats, weakness, others EENTM: denies: blurred vision, double vision, ear bleeding, ear discharge, ear drainage, ear pain, ear ringing, eye pain, eye redness, hearing loss, mouth pain, mouth swelling, nasal discharge, nose bleeding, nose congestion, nose pain, photophobia, tearing, throat pain, throat swelling, voice changes, others Respiratory: denies: cough, hemoptysis, orthopnea, SOB at rest, shortness of breath, SOB with excertion, stridor, wheezing, others Cardiovascular: reports: syncope; denies: chest pain, dizzy spells, diaphoresis, Dyspnea on exertion, edema, irregular heart beat, left arm pain, lightheadedness, palpitations, PND, others Gastrointestinal: denies: abdomen distended, abdominal pain, blood streaked bowels, constipated, diarrhea, dysphagia, difficulty swallowing, hematemesis, melena, nausea, poor appetite, poor fluid intake, rectal bleeding, rectal pain, vomiting, others Genitourinary: denies: burning, dysuria, flank pain, frequency, hematuria, incontinence, penile discharge, penile sore, pain, testicle pain, testicle swelling, urgency, others Neurological: denies: dizziness, fainting, headache, left sided numbness, left sided weakness, numbness, paresthesia, pre-existing deficit, right sided numbness, right sided weakness, seizure, speech problems, tingling, tremors, weakness, others Musculoskeletal: denies: back pain, gout, joint pain, joint swelling, muscle pain, muscle stiffness, neck pain, others Integumetry: denies: bruises, change in color, change in hair/nails, dryness, laceration, lesions, lumps, rash, wounds, others Allergic/Immunocompromised: denies: Difficulty Healing, Frequent Infections, Hives, Itching, others Hematologic/Lymphatic: denies: anemia, blood clots, easy bleeding, easy bruising, swollen glands, others Endocrine: denies: excessive hunger, excessive sweating, excessive thirst, excessive urination, flushing, intolerance to cold, intolerance to heat, unexplained weight gain, unexplained weight loss, others Psychiatric: denies: anxiety, bipolar disorder, depression, hopeless, panic disorder, schizophrenia, sleepless, suicidal, others All Other Systems: Reviewed and Negative Physical Exam General Appearance: Moderate Distress, Normal HEENT: Normal ENT Inspection, Pharynx Normal, TMs Normal Neck: Full Range of Motion, Non-Tender, Normal, Normal Inspection Respiratory: Chest Non-Tender, Lungs Clear, No Accessory Muscle Use, No Respiratory Distress, Normal Breath Sounds Cardiovascular: No Edema, No JVD, No Murmur, No Gallop, Normal Peripheral Pulses, Regular Rate/Rhythm Breast Exam: Deferred Gastrointestinal: No Organomegaly, Non Tender, No Pulsatile Mass, Normal Bowel Sounds, Soft Genitalia: Deferred Pelvic: Deferred Rectal: Deferred Extremities: No calf tenderness, Normal capillary refill, Normal inspection, Normal range of motion, Non-tender, No pedal edema Musculoskeletal : Apperance: Normal Neurologic: Alert, vendor specialist II-XII nml as Tested, No Motor Deficits, Normal Affect, Normal Mood, No Sensory Deficits Cerebellar Function: NOT DONE Reflexes: NOT DONE Skin: Bruises (Right side of forehead), Dry, Normal Color, Warm Peripheral Pulses: 3+ Radial (R), 3+ Radial (L) Lymphatic: No Adenopathy Was a procedure done? Was a procedure done?: No EKG EKG : Pulse Rate (adult): 83 Jbphh: Normal Cardiac Rhythm: NSR Block: None Hypertrophy: None ST: Normal Differential Dx Considerations may include: Syncope, dehydration, electrolyte imbalance, heat stroke X-Ray, Labs, Meds, VS Vital Signs Date Time Temp Pulse Resp B/P (MAP) Pulse Ox O2 Delivery O2 Flow Rate FiO2 03/29/25 16:00 74 18 137/74 (95) 95 03/29/25 15:07 95 Room Air* 0 21 03/29/25 15:03 78 18 95 Room Air* 0 21 03/29/25 15:01 98.8 78 18 168/73 (104) 95 98.8 03/29/25 14:47 97.7 82 18 106/62 98 97.7 03/29/25 14:42 83 03/29/25 14:38 83 Lab Test 03/29/25 15:48 Range/Units White Blood Count 9.7 4.4-10.8 10^3/uL Red Blood Count 4.41 L 4.5-5.90 10^6/uL Hemoglobin 13.8 13.5-17.5 g/dL Hematocrit 40.1 L 41.0-53.0 % Mean Corpuscular Volume 91.0 80.0-100.0 fL Mean Corpuscular Hemoglobin 31.3 28.0-32.0 pg Mean Corpuscular Hemoglobin Concent 34.3 32.0-36.0 g/dL Red Cell Distribution Width 13.2 11.8-14.3 % Platelet Count 122 L 140-450 10^3/uL Mean Platelet Volume 10.6 6.9-10.8 fL Neutrophils (%) (Auto) 82.9 H 37.0-80.0 % Lymphocytes (%) (Auto) 10.7 10.0-50.0 % Monocytes (%) (Auto) 5.9 0.0-12.0 % Eosinophils (%) (Auto) 0.2 0.0-7.0 % Basophils (%) (Auto) 0.3 0.0-2.0 % Neutrophils # (Auto) 8.0 1.6-8.6 10 ^3/uL Lymphocytes # (Auto) 1.0 0.4-5.4 10 ^3/uL Monocytes # (Auto) 0.6 0-1.3 10 ^3/uL Eosinophils # (Auto) 0 0-0.8 10 ^3/uL Basophils # (Auto) 0 0-0.2 10 ^3/uL Nucleated Red Blood Cells 0.0 % Sodium Level 142 136-145 mmol/L Potassium Level 4.4 3.5-5.1 mmol/L Chloride Level 111 H 98-107 mmol/L Carbon Dioxide Level 24 20-31 mmol/L Anion Gap 7 5-15 Blood Urea Nitrogen 18 9-23 mg/dL Creatinine 1.06 0.700-1.30 mg/dL Glomerular Filtration Rate Calc 77 >90 mL/min BUN/Creatinine Ratio 17.0 10.0-20.0 Serum Glucose 183 H 74-106 mg/dL Calcium Level 9.1 8.7-10.4 mg/dL Troponin I High Sensitivity < 3 L </=54 ng/L Current Medications Medications (Trade) Dose Ordered Sig/Jace Route Start Time Stop Time Status Last Admin Sodium Chloride 1,000 ml @ 1,000 mls/hr Q1H ONCE IV 03/29/25 14:45 03/29/25 15:44 DC 03/29/25 15:43 Patient alert. Status post fall. Vitals stable. Answering questions. Moving all extremities. Bruising of the right forehead. CT of the head reviewed does not show any acute process. CT of the neck reviewed does not show any acute process. Establish intravenous access. Was given fluids. Blood sugar elevated. Was given tetanus. EKG reviewed does not show any acute changes. Cardiac marker within normal limits. Explained to the patient. Was told to follow up with his primary care physician. Was told to come back if there is any problem. Time of 1ST Reevaluation: 15:19 Reevaluation 1ST: Improved Patient Education/Counseling: Diagnosis, Treatment, Need For Follow Up Family Education/Counseling: No Family Present SEPSIS Sepsis Screen Physician Orders Head Without Contrast (03/29/25 14:45) Cervical Without Contrast (03/29/25 14:45) Urinalysis (03/29/25 14:45) Troponin-I Hs (03/29/25 15:45) Troponin-I Hs (03/29/25 17:45) Electrocardigram (03/29/25 15:25) Vital Signs Date Time Temp Pulse Resp B/P (MAP) Pulse Ox O2 Delivery O2 Flow Rate FiO2 03/29/25 16:00 74 18 137/74 (95) 95 03/29/25 15:07 95 Room Air* 0 21 03/29/25 15:03 78 18 95 Room Air* 0 21 03/29/25 15:01 98.8 78 18 168/73 (104) 95 98.8 03/29/25 14:47 97.7 82 18 106/62 98 97.7 03/29/25 14:42 83 03/29/25 14:38 83 Laboratory Tests Test 03/29/25 15:48 White Blood Count 9.7 10^3/uL (4.4-10.8) Medications Medications Dose Ordered Sig/Jace Route Start Time Stop Time Status Last Admin Dose Admin Sodium Chloride 1,000 ml @ 1,000 mls/hr Q1H ONCE IV 03/29/25 14:45 03/29/25 15:44 DC 03/29/25 15:43 Departure 1 Departure Time of Disposition: 17:05 Impression: Primary Impression: Uncontrolled diabetes mellitus Qualified Codes: E13.65 - Other specified diabetes mellitus with hyperglycemia Additional Impression: Head injury Qualified Codes: S09.90XA - Unspecified injury of head, initial encounter Disposition: 01 HOME / SELF CARE / HOMELESS Condition: Good Discharged With: Self Critical Care Note Critical Care Time?: No Stability Stability form required: No Heart Score Heart Score: Heart Score Response (Comments) Value History Slightly Suspicious 0 EKG Normal 0 Age >65 2 Risk Factors >3 or Hx ASHD 2 Troponin Normal limit 0 Total 4 I personally scribed for DARON JACKSON MD ([email or web address]) on 03/29/25 at 14:42. Electronically submitted by Cornell Álvarez ([email or web address]). I personally scribed for DARON JACKSON MD ([email or web address]) on 03/29/25 at 14:42. Electronically submitted by Cornell Álvarez ([email or web address]). DARON JACKSON MD Mar 29, 2025 14:42
[2025-03-29 15:01] VITALS: TEMP 98.8
[2025-03-29 15:03] VITALS: PULSE 78; RESP 18; O2SAT 95
[2025-03-29] MEDS: SODIUM CHLORIDE 0.9% 1,000 ML IV ONE (15:43)
--- NOTE | 2025-03-29 15:46 | DVH ---
EXAM: CT HEAD WITHOUT CONTRAST INDICATION: fall TECHNIQUE: CT of the head without intravenous contrast. Radiation Dose Information: CT Dose: CTDI volume is 52.91 mGy. Dose-length product is 863.9 mGy*cm The dose indicators for CT are the volume Computed Tomography (CT) Dose Index (CTDIvol) and the Dose Length Product (DLP), and are measured in units of mGy and mGy-cm, respectively. These indicators are not patient dose, but values generated from the CT scanner acquisition factors. The report includes radiation exposure data for exposures received during this examination. COMPARISON: None FINDINGS: There is no evidence of acute intracranial hemorrhage, extra-axial collection, mass effect, midline s hift, herniation or hydrocephalus. The ventricles, sulci and cisterns are age appropriate. The ronquillo-white differentiation is intact. Patchy periventricular and subcortical white matter hypoattenuation is nonspecific but may be related to small vessel ischemic disease. The visualized paranasal sinuses and mastoid air cells are clear. The surrounding soft tissues and osseous structures are unremarkable. IMPRESSION: 1. No acute intracranial abnormality. 2. No displaced skull fracture 3. No intracranial hemorrhage
--- NOTE | 2025-03-29 15:53 | DVH ---
EXAM: CT CERVICAL WITHOUT CONTRAST INDICATION: fall EXAM DATE: 03/29/2025 03:04 PM COMPARISON: None TECHNIQUE: Multiple axial CT images of the cervical spine were obtained using bone algorithm. Axial a nd coronal reformatting was done. Bone and soft tissue windows were reviewed. Radiation Dose Information: CT Dose: CTDI volume is 18.27 mGy. Dose-length product is 481.85 mGy*cm FINDINGS: The cervical alignment is intact. No acute cervical spine fracture is identified. The vertebral body heights are intact. No suspicious osseous lesions are identified. Bony spondylosis and degenerative disc changes C3 through C7 There is no prevertebral soft tissue swelling. IMPRESSION: 1. No evidence of acute cervical spine fracture or traumatic malalignment. 2. No prevertebral soft tissue swelling 3. Bony alignment appears normal 4. No central canal stenosis All CT scans at this medical facility are performed using dose modulation techniques as appropriate t o a performed exam including the following: Automated exposure control was utilized; adjustment of th e MA and/or KV according to patient size; and use of iterative reconstruction technique.
[2025-03-29 16:00] VITALS: BP 137/74; RESP 18; O2SAT 95
[2025-03-29 16:18] LABS: Hematocrit 40.1 % (41.0-53.0); Hemoglobin 13.8 g/dL (13.5-17.5); Mean Corpuscular Hemoglobin 31.3 pg (28.0-32.0); Mean Corpuscular Volume 91.0 fL (80.0-100.0); Nucleated Red Blood Cells % 0.0 %
[2025-03-29 16:23] LABS: Potassium 4.4 mmol/L (3.5-5.1); Sodium 142 mmol/L (136-145)
[2025-03-29 16:24] LABS: Anion Gap 7 (5-15); Calcium 9.1 mg/dL (8.7-10.4); Carbon Dioxide 24 mmol/L (20-31)
[2025-03-29 16:25] LABS: Chloride 111 mmol/L (98-107)
[2025-03-29 16:29] LABS: BUN/Creatinine Ratio 17.0 (10.0-20.0); Blood Urea Nitrogen 18 mg/dL (9-23)
[2025-03-29 16:30] LABS: Glucose 183 mg/dL (74-106)
[2025-03-29] MEDS: TETANUS-DIPTH-ACEL PERTUSSIS 0.5ML SYR Tdap IM ONE (17:13)
[2025-03-29 17:23] VITALS: PULSE 64
[2025-03-29] MEDS: HYDROcodone-ACET 5/325MG TAB PO ONE (17:38)
--- NOTE | 2025-03-31 13:59 | ECG ---
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
== END 2025-03-29 17:34 | disposition home or self-care (01) ==
LOC: ER 14:31 → EDBD 14:31 → ER 17:34
DX: S00.81XA Abrasion of other part of head, initial encounter (principal); E11.65 Type 2 diabetes mellitus with hyperglycemia; Z87.442 Personal history of urinary calculi; Z98.890 Other specified postprocedural states; Z79.899 Other long term (current) drug therapy; W22.8XXA Striking against or struck by other objects, initial encounter; Y93.89 Activity, other specified; Y92.89 Other specified places as the place of occurrence of the external cause; Y99.8 Other external cause status
CPT/HCPCS: 36415; 70450; 72125; 80048; 84484; 85025; 90471; 90715; 93005; 96360; 99285; J7030

== ENCOUNTER 2025-04-02 15:19 | Outpatient (CLI) | payer OTHER | END 2025-04-02 17:00 | disposition home or self-care (01) | LOC: LAB 15:19 | PROVIDERS: ATTEND Internal Medicine | DX: R59.0 Localized enlarged lymph nodes (principal) | CPT/HCPCS: 36415; 82232; 83615 ==

== ENCOUNTER 2025-06-20 08:11 | Outpatient (CLI) | payer OTHER ==
[2025-06-20 09:16] LABS: Alanine Aminotransferase 15 U/L (7-40); Albumin 4.2 g/dL (3.2-4.8); Alkaline Phosphatase 77 U/L (46-116); Anion Gap 6 (5-15); BUN/Creatinine Ratio 13.6 (10.0-20.0); Blood Urea Nitrogen 12 mg/dL (9-23); Calcium 9.4 mg/dL (8.7-10.4); Carbon Dioxide 27 mmol/L (20-31); Chloride 106 mmol/L (98-107); Cholesterol 188 mg/dL (< 200); Potassium 4.3 mmol/L (3.5-5.1); Sodium 139 mmol/L (136-145); Total Protein 7.5 g/dL (5.7-8.2)
[2025-06-20 09:17] LABS: Bilirubin, Total 0.6 mg/dL (0.2-1.0)
[2025-06-20 09:20] LABS: Glucose 198 mg/dL (74-106); HDL Cholesterol 31 mg/dL (40-59); Triglycerides 338 mg/dL (< 150)
== END 2025-06-20 17:00 | disposition home or self-care (01) ==
LOC: LAB 08:11
PROVIDERS: ATTEND Internal Medicine
DX: E11.69 Type 2 diabetes mellitus with other specified complication (principal); E78.2 Mixed hyperlipidemia; E55.9 Vitamin D deficiency, unspecified; R94.4 Abnormal results of kidney function studies
CPT/HCPCS: 36415; 80053; 80061; 82306; 83036